=== PATIENT | female | born 1950 | race Caucasian/White ===

== ENCOUNTER 2017-05-12 23:47 | Emergency (ER) | payer MEDICARE ==
[2015-07-10 09:18] VITALS: BMI 22.9
[~2017-05-12 23:47] MED LIST: BAYER CHEWABLE81 MG PO; COREG 3.1253.125 MG PO; LIPITOR80 MG PO; PEPCID20 MG PO; PLAVIX75 MG PO; ZANAFLEX4 MG PO
[2017-05-13 02:34] LABS: HEMATOCRIT 28.4 % (36.0-48.0); HEMOGLOBIN 9.6 g/dL (12-16); MCH 29.6 pg (26.0-34.0); MCHC 33.8 g/dL (31.0-37.0); MCV 87.7 fL (80.0-100.0); MEAN PLATELET VOLUME 8.7 fL (7.4-10.4); PLATELET COUNT 243 10x3/uL (130-400); RBC 3.24 10x6/uL (4.00-5.40); RDW 12.5 % (11.5-14.5); WBC 4.6 10x3/uL (4.8-10.8)
[2017-05-13 02:49] LABS: ALBUMIN 2.8 g/dL (3.4-5.0); ANION GAP 10.6 mmol/L (8-16); BILIRUBIN - TOTAL 0.17 mg/dL (0.2-1.3); CALCIUM 8.3 mg/dL (8.5-10.1); CARBON DIOXIDE 26.3 mmol/L (21.0-32.0); CREATININE - SERUM 1.4 mg/dL (0.6-1.3); POTASSIUM - SERUM 4.9 mmol/L (3.5-5.1); PROTEIN - SERUM 6.3 g/dL (6.4-8.2)
[2017-05-13 03:00] LABS: BASOPHILS 2 % (0-2); EOSINOPHILS 3 % (0-7); LYMPHOCYTES 68 % (15-50); MICROCYTOSIS 1+; MONOCYTES 5 % (2-11); NEUTROPHILS 19 % (40-80); PLATELET ESTIMATE NORMAL
[2017-05-13 03:01] LABS: CRENATED CELLS OCC
== END 2017-05-13 04:25 | disposition home or self-care (01) ==
LOC: D.ER 23:47
PROVIDERS: Family Medicine
DX: M54.6 Pain in thoracic spine (principal); C50.919 Malignant neoplasm of unspecified site of unspecified female breast

== ENCOUNTER 2017-07-01 09:18 | Emergency (ER) | payer MEDICARE ==
[2015-07-10 09:18] VITALS: BMI 22.9
[2017-07-01 11:25] LABS: BASOPHILS 0.1 % (0-2); EOSINOPHILS 0 % (0-7); HEMOGLOBIN 8.6 g/dL (12-16); IMMATURE GRANULOCYTES 1.9 % (0-5); LYMPHOCYTES 18.7 % (15-50); MCH 29.8 pg (26.0-34.0); MCHC 34.4 g/dL (31.0-37.0); MCV 86.5 fL (80.0-100.0); MEAN PLATELET VOLUME 8.8 fL (7.4-10.4); MONOCYTES 6.5 % (2-11); NEUTROPHILS 72.8 % (40-80); RBC 2.89 10x6/uL (4.00-5.40); RDW 15.9 % (11.5-14.5); WBC 11.8 10x3/uL (4.8-10.8)
[2017-07-01 11:26] LABS: PLATELET COUNT 177 10x3/uL (130-400)
[2017-07-01 11:42] LABS: ANION GAP 15.7 mmol/L (8-16); CALCIUM 7.8 mg/dL (8.5-10.1); CARBON DIOXIDE 22.5 mmol/L (21.0-32.0); CREATININE - SERUM 1.7 mg/dL (0.6-1.3); POTASSIUM - SERUM 3.2 mmol/L (3.5-5.1)
[2017-07-01 11:43] LABS: BILIRUBIN - TOTAL 0.09 mg/dL (0.2-1.3)
[2017-07-01 12:39] LABS: APPEARANCE HAZY (CLEAR); BACTERIA MODERATE /hpf (NONE SEEN); BILIRUBIN NEGATIVE (NEGATIVE); COLOR YELLOW (YELLOW); EPITHELIAL CELLS 0-5 /hpf (0-5); GLUCOSE NEGATIVE (NEGATIVE); GRANULAR CAST OCC /lpf (NONE SEEN); HYALINE CAST RARE /lpf (NONE SEEN); KETONE NEGATIVE (NEGATIVE); MUCUS <1+ /lpf (NONE SEEN); NITRITE NEGATIVE (NEGATIVE); PROTEIN NEGATIVE (NEGATIVE); SPECIFIC GRAVITY 1.015 (1.005-1.020); UROBILINOGEN NORMAL (NORMAL); WHITE CELLS - URINE 0-5 /hpf (0-5)
== END 2017-07-01 13:44 | disposition home or self-care (01) ==
LOC: D.ER 09:18
PROVIDERS: Emergency Medicine
DX: R11.10 Vomiting, unspecified (principal); R19.7 Diarrhea, unspecified; Z85.3 Personal history of malignant neoplasm of breast

== ENCOUNTER 2017-10-06 10:58 | Outpatient (CLI) | payer MEDICARE ==
[~2017-10-06] VITALS: Ht 157.5 cm; Wt 50.9 kg
[2017-10-06 13:39] VITALS: BP 125/41; Ht 157.5 cm; Wt 50.9 kg
== END 2017-10-06 17:55 | disposition home or self-care (01) ==
LOC: D.OPS 10:58 → D.CATH 11:30 → D.OPS 17:55
DX: D64.9 Anemia, unspecified (principal)

== ENCOUNTER 2017-11-03 07:29 | Outpatient (CLI) | payer MEDICARE ==
[~2017-11-03] VITALS: Ht 157.5 cm; Wt 51.4 kg
--- NOTE | ~2017-11-03 | OP ---
PATIENT NAME: ARVIN STONE MEDICAL RECORD: [id number] :52 LOCATION:D.CAT ADMISSION DATE: SURGEON: LUANNE MAY MD DATE OF OPERATION: 11/03/2017 DATE OF SERVICE: 11/03/2017 PROCEDURES: 1. Aortofemoral runoff. 2. Abdominal aortography. INDICATION: Claudication and peripheral vascular disease. PROCEDURE IN DETAIL: After informed consent was obtained and after detailed explanation of risks, benefits as well as alternative therapies, the patient elected to proceed with angiogram and aortofemoral runoff. The right femoral area was prepped and draped in normal sterile fashion. The right femoral artery was cannulated via modified Seldinger technique with placement of 5-Irish sheath. All catheters exchanged through this sheath. FINDINGS: Abdominal aortography was performed. The catheter was pulled down for aortofemoral runoff. Abdominal aortography reveals no significant abdominal aortic disease, no renal artery stenosis. No dissection or aneurysm formation. RIGHT LEG: A. Iliac: The common internal and external iliacs have moderate irregularities, but no flow-limiting stenosis. B. Femoral system: The common and deep femoral are widely patent. Superficial femoral is totally occluded proximally. This total occlusion is a very long total occlusion. The distal superficial femoral artery does reconstitute from collaterals off the deep femoral system. The distal superficial femoral artery has a good lumen suitable for grafting. C. Popliteal and infrapopliteal vessels: The popliteal is widely patent. There is 3-vessel runoff to the foot, although mildly diffusely diseased and brisk. LEFT LEG: A. Iliac: The common internal and external iliacs have mild irregularities, but no flow-limiting stenosis. B. Femoral system: The common and deep femoral are widely patent. Superficial femoral is occluded from the ostium to the distal superficial femoral, reconstitutes from collaterals off the deep femoral system. The distal superficial femoral artery does have a good lumen suitable for grafting. C. Popliteal and infrapopliteal vessels: The popliteal is widely patent. Anterior tibial is totally occluded. There is 2-vessel runoff through the posterior tibial and peroneal. OVERALL IMPRESSION: Total occlusion of both SFAs bilaterally, not amenable to transcatheter revascularization, but amenable to surgical revascularization. TRANSINT:[id number] Voice Confirmation ID: [id number] DOCUMENT ID: [id number] OPERATIVE REPORT [id number] CHASE,ARVINLUANNE JORDAN MD CC: [id number] DICTATION DATE: 11/03/17 1014 SPARKER AND PATCHER: 11/03/17 1124 REG [place] [id number] [place] [id number]
--- NOTE | ~2017-11-03 | HEMODYNAMI ---
PATIENT:ARVIN STONE MEDICAL RECORD: [id number] : 52 LOCATION:D.CAT ADMISSION DATE: 11/03/17 Generatedon:11/03/201710:08 Patient name: ARVIN STONE Patient #: [id number] SSN: : 1950 Date of study: 11/03/2017 Page: Of Hemodynamic Procedure Report Patient Data Patient Demographics Procedure consent was obtained First Name: ARVIN Gender: Female Last Name: CHASE : 1950 Patient #: [id number] Age: 67 year(s) Race: Additional ID: [id number] Contact details Address: [address] [place] [address] State: [place] City: [facility] Zip code: [address] Past Medical History Allergies Allergen Reaction Date Comments Reported Other allergy 11/03/2017 MORPHINE, LATEX, ATORVASTATIN, ZETIA Admission Admission Data Admission Date: 11/03/2017 Admission Time: 7:29 Lab Results Lab Result Date: 11/03/2017 Lab Result Time: 0:00 Biochemistry Name Units Result Min Max BUN mg/dl 22 --(----)-* 7 18 Creatinine mg/dl 1.7 --(----)-* 0.6 1.3 CBC Name Units Result Min Max Hemoglobin g/dl 10.6 *-(----)-- 13.5 17.5 Procedure Procedure Types Cath Procedure Peripheral Cath Diagnostic Procedure Cath Peripheral Bzxwm-Ocghbfk-Oyi-Off Procedure Description Procedure Date Procedure Date: 11/03/2017 Procedure Start Time: 9:52 Procedure End Time: 10:07 Procedure Staff Name Function Taylor Conway RT Scrub Inés Valera RN Nurse Allen Logan MD Performing Physician Isidra Whitehead RT Monitor Procedure Data Cath Procedure Fluoroscopy Diagnostic fluoroscopy Total fluoroscopy Time: 1.3 time: 1.3 min min Diagnostic fluoroscopy Total fluoroscopy dose: 54 dose: 54 mGy mGy Contrast Material Contrast Material Type Amount (ml) Isovue 300 101 Entry Location Entry Primary Successful Side Size Upsize Upsize Entry Closure Succes sful Closure Location (Fr) 1 (Fr) 2 (Fr) Remarks Device Remarks Femoral Right 5 Fr Exoseal artery Estimated blood loss: 5 ml Diagnostic catheters Device Type Used For End Catheter Placement DIAGNOSTIC UF 5Fr Procedure catheter ([id number]) Procedure Complications No complications Procedure Medications Medication Administration Route Dosage Oxygen NC 2 l/min Lidocaine 2% added to field 20 Heparin Flush Bag added to field 2 bags (1000units/500ml NS) 0.9% NaCl I.V. 100 ml/hr Versed I.V. 1 mg Fentanyl I.V. 50 mcg Versed I.V. 1 mg Fentanyl I.V. 50 mcg Versed I.V. 0.5 mg Fentanyl I.V. 25 mcg Hemodynamics Rest HGB: 10.6 (g/dl) Heart Rate: 80 (bpm) Snapshots Pre Cath Intra NCS Post Cath Vital Signs Time Heart Resp SPO2 etCO2 NIBP Rhythm Pain Sedation Rate (ipm) (%) (mmHg) (mmHg) Status Level (bpm) 9:19:57 83 17 100 0 142/59(93) NSR 0 (11) 10(A) , No pain 9:24:42 74 15 99 0 130/48(75) NSR 0 (11) 10(A) , No pain 9:29:21 75 16 100 0 134/73(85) NSR 0 (11) 10(A) , No pain 9:34:03 74 15 100 35.4 129/47(83) NSR 0 (11) 10(A) , No pain 9:38:44 73 15 100 32.7 124/53(91) NSR 0 (11) 10(A) , No pain 9:43:25 72 15 100 37.7 112/42(83) NSR 0 (11) 10(A) , No pain 9:48:03 71 16 100 12.8 110/46(76) NSR 0 (11) 9(A) , No pain 9:52:42 71 14 100 37.7 97/42(69) NSR 0 (11) 9(A) , No pain 9:57:16 71 15 100 38.5 100/45(68) NSR 0 (11) 9(A) , No pain 10:01:53 77 16 100 40.7 102/41(71) NSR 0 (11) 9(A) , No pain 10:05:20 74 15 100 38.5 95/42(63) NSR 0 (11) 10(A) , No pain Medications Time Medication Route Dose Verified Delivered Reason Notes Effec tiveness by by 9:38:44 Oxygen NC 2 Allen Buffie used for l/min Doreen Valera RN procedure 9:38:52 Lidocaine 2% added 20ml Allen Allen for local to vial Doreen Logan MD anesthetic field 9:38:57 Heparin Flush added 2 Allen Allen used for Bag to bags Doreen Logan MD procedure (1000units/500ml field NS) 9:39:08 0.9% NaCl I.V. 100 Allen Buffie Per ml/hr Doreen Valera RN physician 9:44:01 Fentanyl I.V. 50 Allen Buffie for mcg Droeen Valera RN sedation 9:44:54 Versed I.V. 1 mg Allen Buffie for Doreen Valera RN sedation 9:53:24 Versed I.V. 1 mg Allen Buffie for Doreen Valera RN sedation 9:53:28 Fentanyl I.V. 50 Allen Tannerie for mcg Doreen Valera RN sedation 9:59:18 Versed I.V. 0.5 Allen Tannerie for mg Doreen Valera RN sedation 9:59:22 Fentanyl I.V. 25 Allen Buffie for mcg Doreen Valera RN sedation Procedure Log Time Note 9:04:20 Inés Valera RN sent for patient. Start room use. 9:04:21 Time tracking: Regular hours 9:04:24 Plan of Care:Hemodynamics will remain stable., Cardiac rhythm will remain stable., Comfort level will be maintained., Respiratory function will remain adequate., Patient/ family verbilizes understanding of procedure., Procedure tolerated without complication., Recovers from procedure without complications.. 9:12:41 Patient received from Pre/Post Procedure Room to CCL 1 Alert and oriented. Tansferred to table in Supine position. 9:12:42 Correct patient and procedure confirmed by team. 9:12:42 Warm blankets applied, and aramis hugger turned on for patient comfort. 9:12:43 Signed procedure consent form obtained from patient. 9:12:47 ECG and BP/O2 sat monitors applied to patient. 9:18:57 Vital chart was started 9:21:58 Baseline sample Acquired. 9:22:04 Rhythm: sinus rhythm 9:22:05 Full Disclosure recording started 9:22:09 H&P Date Dictated: 11/03/2017 Within 30 days and on chart., H&P Addendum completed by physician on day of procedure. (MUST COMPLETE FOR ALL OUTPATIENTS). 9:22:10 Pre-procedure instructions explained to patient. 9:22:10 Pre-op teaching completed and patient verbalized understanding. 9:22:13 Family in patients room. 9:22:14 Patient NPO since Midnight. 9:22:39 Patient allergic to Other allergyMORPHINE, LATEX, ATORVASTATIN, ZETIA 9:22:42 Is the patient allergic to Iodine/contrast media? No. 9:22:43 Is patient on blood thinner?Yes 9:22:46 ACC The patient was administered the following blood thiners within the last 24 hours: ACCPlavix 9:22:48 Patient diabetic? No. 9:22:51 Patient not . Patient is over age 55. 9:22:53 Previous problem with sedation/anesthesia? No ? 9:22:55 Snore? No 9:22:56 Sleep apnea? No 9:22:57 Deviated septum? No 9:22:58 Opens mouth fully? Yes 9:22:58 Sticks out tongue? Yes 9:23:00 Airway obstruction? No ? 9:23:03 Dentures? Yes OUT 9:23:08 Pre procedure: right dorsailis pedis pulse 2+ Normal; easily identifiable; not easily obliterated 9:23:11 Patient pain scale 0/10 ?. 9:23:16 IV patent on arrival in port with 0.9% NaCl at KVO. 9:23:21 Bilateral groins area was prepped with chlora-prep and draped in sterile fashion 9:26:50 Alarms reviewed by R. N. 9::51 Sharps counted by scrub and verified by R.N. 9:29:48 Lab Result : BUN 22 mg/dl 9::48 Lab Result : Creatinine 1.7 mg/dl 9::48 Lab Result : Hemoglobin 10.6 g/dl 9:29:52 Lab results completed and on chart. 9:33:18 Zero performed for pressure channel P1 9:33:28 Zero performed for pressure channel P1 9:33:41 Zero performed for pressure channel P1 9:35:32 Use device set Femoral Dx 9:35:38 ACIST Syringe (48494) opened to sterile field. 9:35:39 Bag Decanter (2002S) opened to sterile field. 9:35:44 ACIST Hand Control (88429) opened to sterile field. 9:35:45 ACIST Manifold (89243) opened to sterile field. 9:35:49 PERCUTANEOUS ENTRY 19GA needle opened to sterile field. 9:35:56 Medline Cath Pack ([id number]) opened to sterile field. 9:35:58 SHEATH 5FR Upatoi ([id number]) opened to sterile field. 9:35:59 DIAGNOSTIC WIRE .035 260cm J wire (359347) opened to sterile field. 9:38:44 Oxygen 2 l/min NC was administered by Inés Valera RN; used for procedure; 9:38:52 Lidocaine 2% 20ml vial added to field was administered by Allen Logan MD; for local anesthetic; 9:38:57 Heparin Flush Bag (1000units/500ml NS) 2 bags added to field was administered by Allen Logan MD; used for procedure; 9:39:08 0.9% NaCl 100 ml/hr I.V. was administered by Inés Valera RN; Per physician; 9:42:36 --------ALL STOP TIME OUT------ 9:42:36 Final Timeout: patient, procedure, and site verified with staff and physician. All members of the team are in agreement. 9:42:42 Bilateral groins site verified by team. 9:42:46 Physical assessment completed. ASA score P 2 - A patient with mild systemic disease as per Allne Logan MD. 9:42:52 Sedation plan: IV Moderate Sedation Medication:Versed, Fentanyl 9:44:01 Fentanyl 50 mcg I.V. was administered by Inés Valera RN; for sedation; 9:44:54 Versed 1 mg I.V. was administered by Inés Valera RN; for sedation; 9:52:16 Procedure started. 9:52:40 Local anesthetic to right femoral artery with Lidocaine 2% by Allen Logan MD.INITIAL ACCESS ONLY 9:53:24 Versed 1 mg I.V. was administered by Inés Valera RN; for sedation; 9:53:28 Fentanyl 50 mcg I.V. was administered by Inés Valera RN; for sedation; 9:54:20 A 5 Fr sheath was inserted into the Right Femoral artery 9:58:18 A DIAGNOSTIC UF 5Fr catheter ([id number]) was advanced over the wire and used for Procedure. 9:59:18 Versed 0.5 mg I.V. was administered by Inés Valera RN; for sedation; 9:59:22 Fentanyl 25 mcg I.V. was administered by Inés Valera RN; for sedation; 9:59:35 Left leg runoff performed. 10:00:47 Right leg runoff performed. 10:02:32 EXOSEAL 5Fr (EX500) opened to sterile field. 10:02:38 Catheter removed. 10:03:11 Sheath removed intact; hemostasis achieved with Exoseal to the Right Femoral artery. 10:03:17 Procedure ended.(Physican Out) 10:03:21 Fluoroscopy time 01.30 minutes. 10:03:23 Flurop Dose total: 54 10:03:23 Fluoroscopy dose: 54 mGy 10:03:41 Contrast amount:Isovue 300 101ml. 10:03:47 Sharps counted by scrub and verified by R.N. 10:03:50 Insertion/operative site no bleeding no hematoma. 10:04:24 Post-op/insertion site Right Femoral artery dressed using a 4 x 4 and Tegaderm. 10:04:28 Post right femoral artery:stable, soft, clean and dry 10:04:33 Post procedure: right dorsailis pedis pulse 2+ Normal; easily identifiable; not easily obliterated. 10:04:37 Post-procedure physical assessment completed. ASA score P 2 - A patient with mild systemic disease as per Allen Logan MD. 10:04:39 Post procedure rhythm: unchanged. 10:04:41 Estimated blood loss: 5 ml 10:04:43 Post procedure instruction explained to patient.Patient verbalizes understanding. 10:04:43 Patient needs reinforcement of post procedure teaching. 10:05:25 Procedure and supply charges have been captured, reviewed, submitted and are correct. 10:05:27 Procedure Complication : No complications 10:07:43 Vital chart was stopped 10:07:44 See physician's report for complete and final results. 10:07:47 Report given to Pre/Post Procedure Room. 10:07:50 Patient transfered to Pre/Post Procedure Room with Bed. 10:07:58 Procedure ended. 10:07:58 Full Disclosure recording stopped 10:08:02 End room use (Document Last) Device Usage Item Name Manufacture Quantity Catalog Hospital Part Current Minimal Lot# / Number Charge Number Stock Stock Serial# Code ACIST Acist 1 93063 418576 227424 255680 20 Syringe Medical (47979) Systems Inc Bag Decanter Microtek 1 2001S 187873 43866 547079 5 (2001S) Medical Inc. ACIST Hand Acist 1 45652 161711 321834 465289 5 Control Medical (54766) Systems Inc ACIST Acist 1 33268 629112 311677 943232 5 Manifold Medical (27765) Systems Inc PERCUTANEOUS Cook Medical 1 [id number] 098690 518521 5 ENTRY 19GA needle Medline Cath Cardinal 1 [id number] 673311 51043 137492 5 Pack Health ([id number]) SHEATH 5FR Terumo 1 ZTG174 738913 342706 313826 40 Upatoi (JJB351) DIAGNOSTIC St Camilo 1 719568 403181 335157 941522 30 WIRE .035 260cm J wire (042788) DIAGNOSTIC Cardinal 1 [id number] 848778 145594 077376 10 UF 5Fr Health catheter ([id number]) EXOSEAL 5Fr Cardinal 1 EX500 947014 500680 076795 10 (EX500) Health Signature Audit Edna Stage Time Signature Unsigned Intra-Procedure 11/03/2017 Isidra Whitehead 10:08:13 AM RT(R) Signatures Monitor : Isidra Whitehead Signature : RT Date : Time : [facility] [address] [place] [address]
--- NOTE | ~2017-11-03 | HP ---
PATIENT: ARVIN DOS SANTOS MEDICAL RECORD: [id number] ACCOUNT: [id number] LOCATION:ERIKA : 52 ADMISSION DATE: 11/03/17 HISTORY AND PHYSICAL EXAMINATION DIAGNOSES: 1. Peripheral vascular disease. 2. Claudication. 3. Hyperlipidemia. HISTORY OF PRESENT ILLNESS: Mrs. Dos Santos presents with increasing claudication symptomatology. She has past history of peripheral vascular disease, peripheral stenting. REVIEW OF SYSTEMS: The patient reports easy bruising but reports no swollen glands. The patient reports no fever, no night sweats, no significant weight gain, no significant weight loss. No significant exercise tolerance. The patient reports no dry eyes, no irritation, no vision change. Patient reports no difficulty hearing and no ear pain. Patient reports no frequent nose bleeds or nose and sinus problems. Patient reports on arm pain on exertion. No shortness of breath while lying down. No history of heart murmur. Patient reports no cough, no wheezing or coughing up blood. Patient reports no abdominal pain, no vomiting. Normal appetite. No diarrhea and not vomiting blood. No nausea and no constipation. Patient reports no incontinence. No difficulty urinating. No hematuria. No increased frequency. Patient reports no muscle aches. No weakness, no arthralgias, no back pain. No swelling of the extremities. Patient reports no abnormal mole, no jaundice, no rashes. Reports no loss of consciousness. No weakness and no numbness. No seizures, dizziness, or headaches. The patient reports no depression, no sleep disturbance, feeling safe in a relationship and no alcohol abuse. Patient reports on fatigue. Reports no runny nose or sinus pressure. No itching, no hives, and no frequent sneezing. PHYSICAL EXAMINATION: GENERAL APPEARANCE: Well-nourished, well-developed, appears stated age. Level of distress, comfortable. PSYCHIATRIC: Mental status, alert, normal affect. Orientation, oriented to time, place and person. EYES: Lids and conjunctiva, noninjected. No discharge, no pallor. ENT: Lips, teeth, gums, normal dentition. Oropharynx, no cyanosis, no pallor. NECK: Carotid arteries, bilateral normal upstroke, no bruits, no thrills. JUGULAR VEINS: No jugular venous pressure or distention. CERVICAL LYMPH NODES: Nontender, nonenlarged. THYROID: Not enlarged. Nontender. No nodules. LUNGS: Respiratory effort, unlabored. CHEST: Normal curvature. No thoracic deformity. No chest wall tenderness. Percussion, resonant. Auscultation, clear. No wheezes, no rales, no rhonchi. CARDIOVASCULAR: Precordial exam, nondisplaced. No heaves or pericardial thrills. Rate and rhythm, regular. Heart sounds, normal S1, normal S2. No S3, no gallop, no rub. Systolic murmur, not heard. Diastolic murmur, not heard. EXTREMITIES: No cyanosis, no edema. Peripheral pulses, full and equal in all extremities, except as noted. No bruits appreciated. ABDOMEN: Soft, nondistended. Normal aorta. No bruit. Nontender. No masses. Liver, nontender, no hepatomegaly. Spleen, nontender, no splenomegaly. MUSCULOSKELETAL: No joint tenderness. No joint swelling. No erythema. HISTORY AND PHYSICAL [id number] ARVIN DOS SANTOS NEUROLOGICAL: Normal gait, normal strength, normal tone. SKIN: Warm and dry. OVERALL IMPRESSION: Claudication symptomatology, most likely recurrent with significant peripheral vascular disease. We will proceed with aortofemoral runoff. Further care depends upon findings of the runoff. TRANSINT:[id number] Voice Confirmation ID: [id number] DOCUMENT ID: [id number] LUANNE MAY MD CC: [id number] DICTATION DATE: 11/03/17910 TIN DIPPER: 11/03/17924 [facility] [address] [place] [address]
[2017-11-03] MEDS ORDERED: NEURONTIN600 MG PO (08:05)
[2017-11-03 08:36] VITALS: BP 124/37; Ht 157.5 cm; Wt 51.4 kg
[2017-11-03 09:06] LABS: BASOPHILS 0.4 % (0-2); EOSINOPHILS 3.7 % (0-7); HEMATOCRIT 32.7 % (36.0-48.0); HEMOGLOBIN 10.6 g/dL (12-16); IMMATURE GRANULOCYTES 0.2 % (0-5); LYMPHOCYTES 20.1 % (15-50); MCH 30.6 pg (26.0-34.0); MCHC 32.4 g/dL (31.0-37.0); MCV 94.5 fL (80.0-100.0); MEAN PLATELET VOLUME 8.7 fL (7.4-10.4); MONOCYTES 9.3 % (2-11); NEUTROPHILS 66.3 % (40-80); RBC 3.46 10x6/uL (4.00-5.40); RDW 13.3 % (11.5-14.5); WBC 5.1 10x3/uL (4.8-10.8)
[2017-11-03 09:14] LABS: PLATELET COUNT 135 10x3/uL (130-400)
[2017-11-03 09:16] LABS: ANION GAP 13.3 mmol/L (8-16); CALCIUM 8.8 mg/dL (8.5-10.1); CREATININE - SERUM 1.7 mg/dL (0.6-1.3); POTASSIUM - SERUM 4.3 mmol/L (3.5-5.1)
== END 2017-11-03 12:28 | disposition home or self-care (01) ==
LOC: D.CATH 07:29
PROVIDERS: Internal Medicine Interventional Cardiology
DX: I70.213 Atherosclerosis of native arteries of extremities with intermittent claudication, bilateral legs (principal); Z01.812 Encounter for preprocedural laboratory examination

== ENCOUNTER 2020-01-05 11:12 | Inpatient (IN) | payer OTHER ==
[~2020-01-05] VITALS: Ht 157.5 cm; Wt 64.1 kg
--- NOTE | ~2020-01-05 | HEMODYNAMI ---
PATIENT:ARVIN STONE MEDICAL RECORD: [id number] : 52 LOCATION:D.MS Page2225 ADMISSION DATE: 01/05/20 Generatedon:01/06/202010:47 Patient name: ARVIN STONE Patient #: [id number] SSN: : 1950 Date of study: 01/06/2020 Page: Of Hemodynamic Procedure Report Patient Data Patient Demographics Procedure consent was obtained First Name: ARVIN Gender: Female Last Name: CHASE : 1950 Patient #: [id number] Age: 69 year(s) Race: Additional ID: [id number] Contact details Address: [address] [place] [address] [address]IVE State: [place] City: [facility] Zip code: [address] Past Medical History Allergies Allergen Reaction Date Comments Reported Other allergy 11/03/2017 MORPHINE, LATEX, ATORVASTATIN, ZETIA Other allergy 01/06/2020 morphine, atorvastatin, latex, zetia Admission Admission Data Admission Date: 01/05/2020 Admission Time: 13:07 Room #: D.2225 Procedure Procedure Types Cath Procedure Peripheral Cath Diagnostic Procedure Abd/Extremity Extremities Bilat Lower Extremity Procedure Description Procedure Date Procedure Date: 01/06/2020 Procedure Start Time: 10:00 Procedure Staff Name Function James Bhardwaj MD Performing Physician NESTOR MARSHALL RT Monitor Shreyas Storm RT Scrub Tammy Dawn RN Nurse Procedure Data Cath Procedure Fluoroscopy Diagnostic fluoroscopy Total fluoroscopy Time: 7.2 time: 7.2 min min Diagnostic fluoroscopy Total fluoroscopy dose: 95 dose: 95 mGy mGy Contrast Material Contrast Material Type Amount (ml) Isovue 300 65 Entry Location Entry Primary Successful Side Size Upsize Upsize Entry Closure Succes sful Closure Location (Fr) 1 (Fr) 2 (Fr) Remarks Device Remarks Femoral Right 5 Fr Sheath artery sutured in place Diagnostic catheters Device Type Used For End Catheter Placement Merit ULTRA BOLUS FLUSH 5Fr 65CM catheter ([id number]) Procedure Medications Medication Administration Route Dosage Heparin Flush Bag added to field 3 bags (1000units/500ml NS) Lidocaine 1% added to field 20 Versed I.V. 1 mg Fentanyl I.V. 50 mcg Benadryl I.V. 25 mg Heparin Bolus I.V. 5000 units Fentanyl I.V. 50 mcg Versed I.V. 1 mg Hemodynamics Rest Heart Rate: 67 (bpm) Snapshots Pre Cath Intra NCS Post Cath Vital Signs Time Heart Resp SPO2 etCO2 NIBP (mmHg) Rhythm Pain Sedation Rate (ipm) (%) (mmHg) Status Level (bpm) 9:50:08 60 16 100 41.5 125/47(101) NSR 0 (11) 10(A) , No pain 9:54:24 60 10 100 38.5 122/50(81) NSR 0 (11) 10(A) , No pain 9:58:38 65 11 100 24.1 140/50(76) NSR 0 (11) 10(A) , No pain 10:02:59 66 8 99 40 128/49(82) NSR 0 (11) 8(A) , No pain 10:07:17 65 8 99 38.5 114/43(78) NSR 0 (11) 8(A) , No pain 10:11:31 66 7 100 0 119/44(72) NSR 0 (11) 8(A) , No pain 10:15:45 66 7 100 42.3 116/43(74) NSR 0 (11) 8(A) , No pain 10:19:57 66 7 100 41.5 130/49(92) NSR 0 (11) 8(A) , No pain 10:24:13 77 8 100 43 120/52(78) NSR 0 (11) 8(A) , No pain 10:29:12 72 8 98 40.8 Measuring NSR 0 (11) 8(A) , No pain 10:29:22 71 9 98 46.1 135/59(100) NSR 0 (11) 8(A) , No pain 10:33:42 67 8 98 0 126/45(73) NSR 0 (11) 8(A) , No pain 10:37:56 67 7 99 44.5 146/51(89) NSR 0 (11) 8(A) , No pain 10:42:16 66 8 100 46.1 141/57(91) NSR 0 (11) 8(A) , No pain 10:46:36 67 8 100 45.3 147/52(101) NSR 0 (11) 8(A) , No pain Medications Time Medication Route Dose Verified Delivered Reason Notes Effe ctiveness by by 10:00:17 Heparin Flush added 3 James Ramirez used for Bag to bags Bhardwaj Bhardwaj procedure (1000units/500ml field MD LAM NS) 10:00:28 Lidocaine 1% added 20ml James Ramirez for local to vial Bhardwaj Bhardwaj anesthetic field MD LAM 10:00:40 Versed I.V. 1 mg James Munoz for Bhardwaj López RN sedation 10:00:52 Fentanyl I.V. 50 James Munoz for mcg Bhardwaj López RN sedation 10:01:03 Benadryl I.V. 25 mg James Munoz Per Bhardwaj López RN physician 10:24:57 Heparin Bolus I.V. 5000 James Ramirez units Bhardwaj Bhardwajrl LAM MD 10:27:36 Fentanyl I.V. 50 James Munoz for mcg Bhardwaj López RN sedation 10:27:44 Versed I.V. 1 mg James Tammy for Bhardwaj López RN sedation Procedure Log Time Note 9:20:37 Use device set IR Diagnostic 9:20:39 ACIST Syringe (83784) opened to sterile field. 9:20:39 ACIST Hand Control (26030) opened to sterile field. 9:20:40 ACIST Manifold (89713) opened to sterile field. 9:20:40 Bag Decanter (2001S) opened to sterile field. 9:20:41 Sterile Angiographic Pack opened to sterile field. 9:20:41 Tegaderm 4 x 4 (1626W) opened to sterile field. 9:21:14 PERCUTANEOUS ENTRY 19GA needle opened to sterile field. 9:21:14 SHEATH 5FR [place] (BIA850) opened to sterile field. 9:21:14 TUBING Contrast Injection High Pressure (MZV887O) opened to sterile field. 9:21:15 DOC .035 wire (A18014) opened to sterile field. 9:21:17 - 9:27:22 Shreyas Emeterio RT (R) (CV) sent for patient. Start room use. 9:27:23 Time tracking: Regular hours (M-F 7:00 - 5:00) 9:27:29 Plan of Care:Hemodynamics will remain stable., Cardiac rhythm will remain stable., Comfort level will be maintained., Respiratory function will remain adequate., Patient/ family verbilizes understanding of procedure., Procedure tolerated without complication., Recovers from procedure without complications.. 9:27:37 Patient received from Med/Surg to IR Alert and oriented. Tansferred to table in Supine position. 9:27:38 Signed procedure consent form obtained from patient. 9:27:39 Warm blankets applied, and aramis hugger turned on for patient comfort. 9:27:40 Correct patient and procedure confirmed by team. 9:27:40 ECG and BP/O2 sat monitors applied to patient. 9:27:48 H&P Date Dictated: 01/06/2020 Within 30 days and on chart.. 9:27:50 Pre-procedure instructions explained to patient. 9:27:51 Pre-op teaching completed and patient verbalized understanding. 9:27:55 Patient NPO since Midnight. 9:28:27 Patient allergic to Other allergymorphine, atorvastatin, latex, zetia 9:28:30 Is the patient allergic to Iodine/contrast media? No. 9:28:50 Patient diabetic? No. 9:28:53 Is patient on blood thinner?No 9:28:57 - 9:28:59 ----Pre-sedation anethsthesia assessment.---- 9:29:08 Previous problem with sedation/anesthesia? No ? 9:29:10 Snore? No 9:29:12 Sleep apnea? No 9:29:14 Deviated septum? No 9:29:15 Opens mouth fully? Yes 9:29:20 Sticks out tongue? Yes 9:29:23 Airway obstruction? No ? 9:29:28 Dentures? No ? 9:29:30 - 9:30:21 IV patent on arrival in left forearm with 0.9% NaCl at [facility]. ::28 Right groin area was prepped with chlora-prep and draped in sterile fashion :30:29 Alarms reviewed by Jennifer Harris :30:30 Sharps counted by scrub and verified by Prerna 9:30:31 - 9:43:03 A ConnectSoft ULTRA BOLUS FLUSH 5Fr 65CM catheter ([id number]) was advanced over the wire. 9:48:48 Vital chart was started 9:48:49 Baseline sample Acquired. 9:48:52 Full Disclosure recording started 9:48:55 - 9:56:43 Physician arrived 9:56:43 --------ALL STOP TIME OUT------ 9:56:44 Final Timeout: patient, procedure, and site verified with staff and physician. All members of the team are in agreement. 9:56:45 Right groin site verified by team. 9:56:49 Fire Safety Assessment: A--An alcohol-based skin anteseptic being used preoperatively., C--Open oxygen or nitrous oxide is being used. 9:57:00 3b) 30-44 Moderately reduced kidney function. 10:00:03 Procedure started. 10:00:17 Heparin Flush Bag (1000units/500ml NS) 3 bags added to field was administered by James Bhardwaj MD; used for procedure; Verbal order read back and verified. 10:00:28 Lidocaine 1% 20ml vial added to field was administered by James Bhardwaj MD; for local anesthetic; Verbal order read back and verified. 10:00:32 Local anesthetic to right femoral artery with Lidocaine 1% by James Bhardwaj MD.INITIAL ACCESS ONLY 10:00:40 Versed 1 mg I.V. was administered by Tammy Dawn RN; for sedation; Verbal order read back and verified. 10:00:52 Fentanyl 50 mcg I.V. was administered by Tammy Dawn RN; for sedation ; Verbal order read back and verified. 10:01:03 Benadryl 25 mg I.V. was administered by Tammy Dawn RN; Per physician ; Verbal order read back and verified. 10:04:29 GLIDE CATHETER 5FR ANGLED 100cm (CG508) opened to sterile field. 10:04:29 GLIDE WIRE .038 180cm ANGLED (MI9324) opened to sterile field. 10:04:35 TORQUE DEVICE PLASTIC .038 ( TD01) opened to sterile field. 10:05:18 A 5 Fr sheath was inserted into the Right Femoral artery 10:16:00 RETANA 260 wire (O23218) opened to sterile field. 10:16:44 INFUSION CATHETER 50cm Anselmo (6656453) opened to sterile field . 10:18:01 AMPLATZ Super stiff Straight 260cm wire ([id number]) opened to sterile field. 10:20:35 SUTURE ETHILON 2-0 BLK MONO FS opened to sterile field. 10:22:08 INFUSION CATHETER 30cm Jasmynara (1693332) opened to sterile field . 10:24:57 Heparin Bolus 5000 units I.V. was administered by James Bhardwaj MD; ; Verbal order read back and verified. 10:25:26 Hemostasis achieved with Sheath sutured in place to the Right Femoral artery. 10:26:37 Fluoroscopy time 07.20 minutes. 10::42 Fluoroscopy dose: 95 mGy 10::42 Flurop Dose total: 95 10:27:36 Fentanyl 50 mcg I.V. was administered by Tammy Dawn RN; for sedation ; Verbal order read back and verified. 10:27:44 Versed 1 mg I.V. was administered by Tammy Dawn RN; for sedation; Verbal order read back and verified. 10:32:54 Contrast amount:Isovue 300 65ml. 10:33:07 Post procedure instruction explained to patient.Patient verbalizes understanding. 10:33:10 Procedure and supply charges have been captured, reviewed, submitted an d are correct. 10:47:23 Vital chart was stopped 10:47:27 Patient transfered to CVICU with Bed. Device Usage Item Name Manufacture Quantity Catalog Number Hospital Part Current De nimwy Lot# / Charge Number Stock Stock Serial# Code ACIST Syringe Acist 1 61630 371132 646857 622863 20 (76872) Medical Systems Inc ACIST Hand Acist 1 34375 967944 607796 659554 5 Control Medical (61484) Systems Inc ACIST Manifold Acist 1 76081 416084 832063 739672 5 (92384) Medical Systems Inc Bag Decanter Microtek 1 2001S 916427 80535 293340 5 (2001S) Medical Inc. Sterile Cardinal 1 [id number] 889439 296804 5 Angiographic Health Pack Tegaderm 4 x 4 3M 1 1626W 866357 442429 077306 5 (1626W) PERCUTANEOUS Cook Medical 1 S76083 423219 477622 5 [id number] ENTRY 19GA needle SHEATH 5FR Terumo 1 JAF228 622554 547037 914855 5 [place] (HLS860) TUBING Merit 1 [id number] 399756 015917 781894 5 [id number] Contrast Medical Injection High Pressure ([id number]) DOC .035 wire Cook Medical 1 W69658 257868 939337 5 (C25085) Merit ULTRA Merit 1 [id number] 644327 509770 5 BOLUS FLUSH Medical 5Fr 65CM catheter ([id number]) GLIDE CATHETER Terumo 1 CG508 796830 88777 990782 4 5FR ANGLED 100cm (CG508) GLIDE WIRE Terumo 1 IQ1989 035706 532384 5 .038 180cm ANGLED (IO5375) TORQUE DEVICE [place] 1 TD01 342173 135033 697887 5 PLASTIC .038 ( Scientific TD01) RETANA 260 wire Cook Medical 1 V99640 000900 54644 828802 5 (J70093) INFUSION Medtronic 1 33951-74 054030 352356 5 CATHETER 50cm Otisgg-Zeke (4385710) AMPLATZ Super [place] 1 [id number] 151168 29449 380106 5 stiff Straight Scientific 260cm wire ([id number]) SUTURE ETHILON Ethicon 1 664H 093768 797837 5 2-0 BLK MONO FS INFUSION Medtronic 1 39396-57 806343 090576 5 CATHETER 30cm Otisgg-Zeke (1557776) Signature Audit [place] Stage Time Signature Unsigned Intra-Procedure 01/06/2020 NESTOR MARSHALL RT 10:47:45 AM (R) [facility] [address] [place] [address]
--- NOTE | ~2020-01-05 | HEMODYNAMI ---
PATIENT:ARVIN STONE MEDICAL RECORD: [id number] : 52 LOCATION:[facility] D.2305 ADMISSION DATE: 01/05/20 Generatedon:01/07/202011:22 Patient name: ARVIN STONE Patient #: [id number] SSN: : 1950 Date of study: 01/07/2020 Page: Of Hemodynamic Procedure Report Patient Data Patient Demographics Procedure consent was obtained First Name: ARVIN Gender: Female Last Name: CHASE : 1950 Patient #: [id number] Age: 69 year(s) Race: Additional ID: [id number] Contact details Address: [address] [place] [address] DRIVE State: [place] City: [facility] Zip code: [address] Past Medical History Allergies Allergen Reaction Date Comments Reported Other allergy 11/03/2017 MORPHINE, LATEX, ATORVASTATIN, ZETIA Other allergy 01/06/2020 morphine, atorvastatin, latex, zetia Admission Admission Data Admission Date: 01/05/2020 Admission Time: 13:07 Room #: D2305 Procedure Procedure Types Cath Procedure Peripheral Cath Diagnostic Procedure Abd/Extremity Follow Up Arteriogram Procedure Description Procedure Date Procedure Date: 01/07/2020 Procedure Start Time: 9:35 Procedure Staff Name Function Kendall Dobbins MD Performing Physician Shreyas Storm RT Monitor Lary Russo RN Nurse NESTOR MARSHALL RT Scrub Procedure Data Cath Procedure Fluoroscopy Diagnostic fluoroscopy Total fluoroscopy Time: time: 17.2 min 17.2 min Diagnostic fluoroscopy Total fluoroscopy dose: 278 dose: 278 mGy mGy Procedure Medications Medication Administration Route Dosage Heparin Flush Bag added to field 2 bags (1000units/500ml NS) Lidocaine 1% added to field 20 Benadryl I.V. 25 mg Heparin Bolus I.V. 2000 units Versed I.V. 0.5 mg Fentanyl I.V. 25 mcg Fentanyl I.V. 25 mcg Versed I.V. 0.5 mg Heparin Bolus I.V. 1000 units Fentanyl I.V. 25 mcg Nitroglycerin IC/IA I.A. 200 mcg Nitroglycerin IC/IA I.A. 250 mcg Versed I.V. 0.5 mg Hemodynamics Rest Heart Rate: 86 (bpm) Snapshots Pre Cath Intra NCS Post Cath Vital Signs Time Heart Resp SPO2 etCO2 NIBP (mmHg) Rhythm Pain Sedation Rate (ipm) (%) (mmHg) Status Level (bpm) 9:20:56 86 6 97 45.1 151/60(98) NSR 0 (11) 10(A) , No pain 9:25:20 82 9 97 43.5 148/58(99) NSR 0 (11) 10(A) , No pain 9:29:44 80 6 98 36 145/54(96) NSR 0 (11) 10(A) , No pain 9:34:06 84 6 97 45 145/55(91) NSR 0 (11) 10(A) , No pain 9:38:28 81 10 96 37.5 138/52(87) NSR 0 (11) 8(A) , No pain 9:42:49 82 7 98 45 139/52(86) NSR 0 (11) 8(A) , No pain 9:47:07 83 8 99 45.8 143/57(91) NSR 0 (11) 8(A) , No pain 9:51:27 86 13 98 51 147/59(91) NSR 0 (11) 8(A) , No pain 9:55:49 84 15 100 45 157/57(95) NSR 0 (11) 8(A) , No pain 10:00:12 86 14 90 44.3 165/60(101) NSR 0 (11) 8(A) , No pain 10:04:39 86 8 97 46.5 154/58(91) NSR 0 (11) 8(A) , No pain 10:09:04 85 10 98 46.5 144/60(105) NSR 0 (11) 8(A) , No pain 10:13:24 86 10 43.5 143/63(96) NSR 0 (11) 8(A) , No pain 10:17:44 86 9 86 46.5 157/64(98) NSR 0 (11) 8(A) , No pain 10:22:06 86 20 95 48.1 146/61(93) NSR 0 (11) 8(A) , No pain 10:26:26 87 6 95 45.8 148/65(102) NSR 0 (11) 8(A) , No pain 10:30:46 88 6 92 44.3 154/62(110) NSR 0 (11) 8(A) , No pain 10:35:09 89 8 48.8 157/62(103) NSR 0 (11) 8(A) , No pain 10:39:31 89 12 100 42.8 150/61(95) NSR 0 (11) 8(A) , No pain 10:43:53 87 7 88 44.3 144/61(106) NSR 0 (11) 8(A) , No pain 10:48:13 87 10 44.3 152/62(91) NSR 0 (11) 8(A) , No pain 10:52:37 86 13 42.1 156/55(112) NSR 0 (11) 8(A) , No pain 10:57:02 90 12 86 44.3 151/59(88) NSR 0 (11) 8(A) , No pain 11:01:24 91 11 72 45 160/59(94) NSR 0 (11) 8(A) , No pain 11:05:46 92 10 41.3 161/64(107) NSR 0 (11) 8(A) , No pain 11:10:08 89 10 91 43.5 156/56(99) NSR 0 (11) 8(A) , No pain 11:14:34 86 10 44.3 154/57(100) NSR 0 (11) 8(A) , No pain 11:18:34 0 No Cuff NSR 0 (11) 8(A) , No pain Medications Time Medication Route Dose Verified Delivered Reason Notes E ffectiveness by by 9:28:55 Heparin Flush added 2 bags Kendall Argueta used for Bag to Mu Dobbins procedure (1000units/500ml field MD LAM NS) 9:29:12 Lidocaine 1% added 20ml Kendall Argueta used for to vial Mu Dobbins procedure field MD LAM 9:29:28 Benadryl I.V. 25 mg Kendall Barth used for Mu Karan boothe MD 9:35:03 Fentanyl I.V. 25 mcg Kendall Leivai for sedation Mu Russo RN, MD 9:35:51 Versed I.V. 0.5 mg Kendall Barth for sedation Mu Russo RN, MD 9:40:37 Heparin Bolus I.V. 2000 Kendall Lary used for units Mu boothe MD 9:56:34 Fentanyl I.V. 25 mcg Kendall Barth for sedation Mu Russo RN, MD 9:56:44 Versed I.V. 0.5 mg Kendall Leivai for sedation Mu Russo RN, MD 10:10:48 Heparin Bolus I.V. 1000 Kendall Lary used for units Mu boothe MD 10:17:58 Fentanyl I.V. 25 mcg Kendall Leivai for sedation Mu Russo RN, MD 10:18:08 Nitroglycerin I.A. 200mcg Kendall Argueta for IC/IA Mu birmingham MD, MD 10:33:36 Nitroglycerin I.A. 250mcg Kendall Argueta for IC/IA Mu birmingham MD, MD 10:46:39 Versed I.V. 0.5 mg Kendall Argueta for sedation Mu Dobbins MD, MD Procedure Log Time Note 9:07:18 Shreyas Storm RT (R) (CV) sent for patient. Start room use. 9:07:29 Time tracking: Regular hours (M-F 7:00 - 5:00) 9:07:35 Plan of Care:Hemodynamics will remain stable., Cardiac rhythm will remain stable., Comfort level will be maintained., Respiratory function will remain adequate., Patient/ family verbilizes understanding of procedure., Procedure tolerated without complication., Recovers from procedure without complications.. 9:07:40 Patient received from ICU to IR Alert and oriented. Tansferred to table in Supine position. 9:07:43 Signed procedure consent form obtained from patient. 9:07:45 Correct patient and procedure confirmed by team. 9:07:47 Full Disclosure recording started 9:07:48 - 9:07:50 H&P Date Dictated: 01/07/2020 Within 30 days and on chart.. 9:07:51 Pre-procedure instructions explained to patient. 9:07:52 Pre-op teaching completed and patient verbalized understanding. 9:07:56 Use device set IR Diagnostic 9:07:58 Bag Decanter (2002S) opened to sterile field. 9:07:58 Sterile Angiographic Pack opened to sterile field. 9:08:00 Tegaderm 4 x 4 (1626W) opened to sterile field. 9:08:05 Family unavailable. 9:08:07 Patient NPO since Midnight. 9:08:11 Is the patient allergic to Iodine/contrast media? No. 9:08:13 Is patient on blood thinner?Yes 9:08:21 ACC The patient was administered the following blood thiners within the last 24 hours: ACCHeparin 9:08:58 Patient diabetic? No. 9:08:59 - 9:09:00 - 9:09:00 ----Pre-sedation anethsthesia assessment.---- 9:09:12 Snore? No 9:09:15 Sleep apnea? No 9:09:22 Opens mouth fully? Yes 9:09:24 Sticks out tongue? Yes 9:09:29 Deviated septum? No 9:09:36 Dentures? No ? 9:09:37 - 9:09:40 Pre procedure: right dorsailis pedis pulse Doppler 9::43 Pre procedure: left dorsailis pedis pulse Doppler 9::46 Pre procedure: right posterior tibial pulse Doppler 9:09:49 Pre procedure: left posterior tibial pulse Doppler 9:10:16 IV patent on arrival in left forearm with 0.9% NaCl at [facility]. 9:10:21 Sharps counted by scrub and verified by R.N. 9::22 Alarms reviewed by R. N. 9::25 Right groin area was prepped with betadine and draped in sterile fashio n 9::43 ECG and BP/O2 sat monitors applied to patient. 9::44 Vital chart was started 9:19:45 Baseline sample Acquired. 9:21:42 3b) 30-44 Moderately reduced kidney function. 9:22:37 Maximum allowable contrast dose (3.7 X eGFR X 0.75)88.8 ml. 9:28:55 Heparin Flush Bag (1000units/500ml NS) 2 bags added to field was administered by Kendall Dobbins MD; used for procedure; Verbal order read back and verified. 9:29:12 Lidocaine 1% 20ml vial added to field was administered by Kendall pradhan MD; used for procedure; Verbal order read back and verified. 9:29:28 Benadryl 25 mg I.V. was administered by Lary Russo RN; used for procedure; Verbal order read back and verified. 9:33:23 Physician arrived 9:33:24 --------ALL STOP TIME OUT------ 9:33:25 Final Timeout: patient, procedure, and site verified with staff and physician. All members of the team are in agreement. 9:33:27 Right groin site verified by team. 9:33:31 Fire Safety Assessment: A--An alcohol-based skin anteseptic being used preoperatively., C--Open oxygen or nitrous oxide is being used. 9:33:37 Sedation plan: IV Moderate Sedation Medication:Versed, Fentanyl 9:35:03 Fentanyl 25 mcg I.V. was administered by Lary Russo RN; for sedation; Verbal order read back and verified. 9:35:20 Procedure started. 9:35:24 Local anesthetic to right femoral artery with Lidocaine 1% by Kendall Dobbins MD.INITIAL ACCESS ONLY 9:35:51 Versed 0.5 mg I.V. was administered by Lary Russo RN; for sedation; Verbal order read back and verified. 9:38:09 BENTSON 260 wire ([id number]) opened to sterile field. 9:38:10 CHOICE PT Extra Support J 300cm guide wire ([id number]) opened to steril e field. 9:38:10 RETANA 260 wire ([id number]) opened to sterile field. 9:38:11 SHEATH 6FR Destination (RSR01) opened to sterile field. 9:38:12 INFLATOR BasixTOUCH (BA5004) opened to sterile field. 9:40:37 Heparin Bolus 2000 units I.V. was administered by Lary Russo RN; used for procedure; Verbal order read back and verified. 9:40:38 CXI SUPPORT .035 135 CM STR catheter ([id number]) opened to sterile field. 9:49:44 ROADRUNNER .035 260 glide wire (V19762) opened to sterile field. 9:53:21 COPILOT Valve Control ([id number]) opened to sterile field. 9:56:34 Fentanyl 25 mcg I.V. was administered by Lary Russo RN; for sedation; Verbal order read back and verified. 9:56:44 Versed 0.5 mg I.V. was administered by Lary Russo RN; for sedation; Verbal order read back and verified. 10:02:13 Inflate balloon Inflation number: 1 A NANOCROSS ELITE 2.5MM-2 MM X 210 X 150 ([id number]) was prepped and advanced across the Undefined1 , then inflated to 8 TANIA for 0:19 (min:sec) . 10:10:48 Heparin Bolus 1000 units I.V. was administered by Lary Russo RN; used for procedure; Verbal order read back and verified. 10:17:58 Fentanyl 25 mcg I.V. was administered by Lary Russo RN; for sedation; Verbal order read back and verified. 10:18:08 Nitroglycerin IC/IA 200mcg I.A. was administered by Kendall Dobbins MD; for vasodilation; Verbal order read back and verified. 10:22:35 Inflate balloon Inflation number: 2 A NANOCROSS ELITE 2-1.5 mm X 210 X 150 ([id number]) was prepped and advanced across the Undefined1 , then inflated to 8 TANIA for 0:04 (min:sec) . 10:33:36 Nitroglycerin IC/IA 250mcg I.A. was administered by Kendall Dobbins MD; for vasodilation; Verbal order read back and verified. 10:45:04 SHEATH 6FR [place] ([id number]) opened to sterile field. 10:46:39 Versed 0.5 mg I.V. was administered by Kendall Dobbins MD; for sedation; Verbal order read back and verified. 10:55:39 Inflate balloon Inflation number: 3 A CHOCOLATE 5.0 x 40 x 120 balloon ([id number]) was prepped and advanced across the Undefined1 , then inflated to 9 TANIA for 3:14 (min:sec) . 10:58:28 MYNX ANIMAL HUSBANDRY TECHNICIAN 6FR/7FR (MG0310) opened to sterile field. 11:05:22 Procedure ended.(Physican Out) 11:05:44 Fluoroscopy time 17.20 minutes. 11:05:51 Fluoroscopy dose: 278 mGy 11:05:51 Flurop Dose total: 278 11:05:54 Dose Area Product 105 mGy/cm. 11:07:24 Insertion/operative site no bleeding no hematoma. 11:07:28 Post-op/insertion site Right Femoral artery dressed using a 4 x 4 and Tegaderm. 11:07:32 Post right femoral artery:stable 11:07:34 Post Procedure Pulses reassessed and unchanged 11:07:38 Post procedure instruction explained to patient.Patient verbalizes understanding. 11:07:38 Procedure and supply charges have been captured, reviewed, submitted an d are correct. 11:22:05 Report given to ICU. 11:22:08 Patient transfered to ICU with Bed. 11:22:38 Vital chart was stopped Intervention Summary Intervention Notes Time ActionType Lesion and Equipment Used Action# Pressure Duration Attributes 10:02:13 Inflate Undefined1 NANOCROSS ELITE 1 8 00:19 balloon 2.5MM-2 MM X 210 X 150 ([id number]) 10:22:35 Inflate Undefined1 NANOCROSS ELITE 2 8 00:04 balloon 2.5MM-2 MM X 210 X 150 ([id number]) 10:55:39 Inflate Undefined1 CHOCOLATE 5.0 x 3 9 03:14 balloon 40 x 120 balloon ([id number]) Device Usage Item Name Manufacture Quantity Catalog Number [facility] Minimal Lot# / Charge Number Stock Stock Serial# Code Bag Decanter Microtek 1 [id number] 16568 [id number] 5 () Medical Inc. Sterile Cardinal 1 [id number] 638016 109466 5 Angiographic Pack Health Tegaderm 4 x 4 3M 1 1626W 708756 545885 758323 5 (1626W) BENTSON 260 wire [employer] 1 [id number] 460898 276693 323419 5 ([id number]) CHOICE PT Extra [place] 1 [id number] 283122 464033 129269 5 [id number] Support J 300cm Scientific guide wire ([id number]) RETANA 260 wire [employer] 1 [id number] 188134 32549 629928 5 (L18035) SHEATH 6FR Terumo 1 RSR01 454594 44443 826042 5 Destination (RSR01) INFLATOR Merit 1 QE6894 314791 708199 329291 5 [facility] CXI SUPPORT .035 [employer] 1 T96229 707259 113514 532357 5 [id number] 135 CM STR catheter ([id number]) ROADRUNNER .035 [employer] 1 F76605 535141 731489 385959 5 [id number] 260 glide wire (L79612) COPILOT Valve Dickson 1 7931930 512818 477316 672857 5 Control ([id number]) Vascular NANOCROSS ELITE Medtronic 2 [id number] 176047 002392 1 2.5MM-2 MM X 210 X 150 ([id number]) SHEATH 6FR Terumo 1 WMJ192 713360 156019 415798 40 [place] (PBX015) CHOCOLATE 5.0 x Medtronic 1 [id number] 059582 057402 5 40 x 120 balloon O ([id number]) TW MYNX ANIMAL HUSBANDRY TECHNICIAN 6FR/7FR Access 1 GU6838 893283 122957 5 [id number] ([id number]) Closure Signature Audit [place] Stage Time Signature Unsigned Intra-Procedure 01/07/2020 Shreyas 11:22:34 AM Emeterio RT (R) (CV) [facility] [address] [place] [address]
[~2020-01-05 11:12] MED LIST changes: +NEURONTIN600 MG PO
[2020-01-05] MEDS ORDERED: LYRICA75 MG PO (13:26)
[2020-01-05] MEDS ORDERED: ULTRAM50 MG PO (13:28)
[2020-01-05] MEDS ORDERED: ZANAFLEX4 MG PO (13:28)
[2020-01-05 13:42] VITALS: BP 148/45
[2020-01-05 14:08] LABS: BASOPHILS 0.5 % (0-2); EOSINOPHILS 1.9 % (0-7); HEMATOCRIT 36.3 % (36.0-48.0); HEMOGLOBIN 11.4 g/dL (12-16); IMMATURE GRANULOCYTES 0.2 % (0-5); LYMPHOCYTES 25.6 % (15-50); MCH 28.4 pg (26.0-34.0); MCHC 31.4 g/dL (31.0-37.0); MCV 90.3 fL (80.0-100.0); MEAN PLATELET VOLUME 8.8 fL (7.4-10.4); MONOCYTES 6.4 % (2-11); NEUTROPHILS 65.4 % (40-80); RBC 4.02 10x6/uL (4.00-5.40); RDW 13.5 % (11.5-14.5); WBC 5.9 10x3/uL (4.8-10.8)
[2020-01-05 14:09] LABS: ANION GAP 13.4 mmol/L (8-16); CALCIUM 8.9 mg/dL (8.5-10.1); CARBON DIOXIDE 27.5 mmol/L (21.0-32.0); CREATININE - SERUM 1.8 mg/dL (0.6-1.3); POTASSIUM - SERUM 3.9 mmol/L (3.5-5.1)
[2020-01-05 14:10] LABS: PLATELET COUNT 250 10x3/uL (130-400)
[2020-01-05 14:22] VITALS: BP 178/75; BMI 23.6
--- NOTE | 2020-01-05 14:30 | NUR ---
ASSESSMENT PER FLOW SHEET. ORIENTATION TO ROOM. IV SITED TO RIGHT FOREARM X1 STICK ASEPTIC TECH,22G.
[2020-01-05 14:39] LABS: APTT 27.7 SECONDS (22.8-39.4); INR 0.86 (0.85-1.17); PROTIME 11.7 SECONDS (11.6-15.0)
[2020-01-05 17:16] VITALS: BP 87/56
[2020-01-05 20:00] VITALS: BP 127/47
--- NOTE | 2020-01-05 22:48 | HP ---
PATIENT: ARVIN STONE MEDICAL RECORD: [id number] ACCOUNT: [id number] LOCATION:D.MS Page2225 : 52 ADMISSION DATE: 01/05/20 PCP: EDSON MASON MD HISTORY AND PHYSICAL EXAMINATION DATE OF ADMISSION: 01/05/2020 CHIEF COMPLAINT: Pain and swelling in left leg. HISTORY OF PRESENT ILLNESS: This is a 69-year-old female who had a left femoral bypass surgery done in [place] in 2018. She has done pretty well with it until about the last week when she started having some pain at the distal end of the scar above the knee medially and started having swelling. There was some redness noted, but no heat from this area. The patient is having some claudication, is having some rest pain and some shooting pains down her leg and into her toes. Because of her pain and swelling, there was also a thought of DVT. The patient had a deep vein thrombosis of both legs during many years ago and then also had a DVT in the left upper extremity after getting port placement. She was sent from my office to [facility] for outpatient venous Doppler ultrasound of the left leg and it was positive for nonocclusive deep vein thrombosis in the left popliteal vein. She also underwent a left arterial Doppler scan of the left leg at same time and there was no flow demonstrated in the left SFA graft, but there was flow in the left lower extremity distal to that graft. There was also no flow detected in the left dorsalis pedis artery. She is now directly admitted into the hospital, will be started on heparin. This case has been discussed with interventional radiology and Dr. Alcantara is consulted as well. 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 She has had a left CVA back in 2013. PAST SURGICAL HISTORY: She had a left lumpectomy, hysterectomy, left femoral bypass surgery in [place] in 2018. She had a carotid stent placed in 2013, she had port placement. ALLERGIES: MORPHINE, LATEX AND MACROLIDES. HOME MEDICATIONS: Include tizanidine 4 mg at bedtime, Lyrica 75 mg twice a day, tramadol 50 mg twice a day. She is on no blood thinners. SOCIAL HISTORY: She is . She has been working at [employer], but I believe her job has been furloughed at this time. HABITS: Long time smoker, who has quit (states she smoked couple recently). Denies alcohol or drug use. FAMILY HISTORY: She really does not know much about her father, does not know his cause of . The patient's mother at age 42. REVIEW OF SYSTEMS: GENERAL: No major weight changes. HEENT: No particular sinus or allergy problems. HISTORY AND PHYSICAL [id number] ARVIN STONE RESPIRATORY: No history of COPD or asthma. CARDIAC: She has had some blockage treated medically. She has peripheral artery disease with a left femoral bypass and carotid occlusive disease with stent placed in the left carotid artery. GASTROINTESTINAL: No significant heartburn, diarrhea or constipation. GENITOURINARY: History of bladder cancer followed by urology at [place]. MUSCULOSKELETAL: Has fibromyalgia. NEUROLOGIC: No migraines or seizures. PSYCHIATRIC: No significant depression or melancholia. PHYSICAL EXAMINATION: VITAL SIGNS: Temperature 97.9, pulse 66, respirations 18, blood pressure 178/75, O2 sat 96%. GENERAL: She is awake and alert. She does not appear in acute distress. HEENT: Grossly within normal limits. NECK: Supple. HEART: Regular rate and rhythm without murmur. LUNGS: Clear. ABDOMEN: Soft, flat, nontender. EXTREMITIES: She has a well-healed scar down the medial aspect of the left thigh, at the distal, just above the knee, there is some mild swelling and some redness. There is no warmth here. The distal end of her surgery from her femoral bypass surgery scars well healed. This is where her tenderness really starts. Homans' sign is negative, but has generalized tenderness in the leg, below the knee. I do not feel a dorsalis pedis pulse, but the leg is not cold. LABORATORY AND DIAGNOSTIC DATA: CBC with a white count of 5900, hemoglobin 11.4. INR 0.86. Basic metabolic panel is all okay except BUN a little elevated at 30 and creatinine a little elevated at 1.8. Again, left venous Doppler ultrasound is positive for nonocclusive deep vein thrombosis in the left popliteal vein and the left leg arterial Doppler ultrasound shows no flow demonstrated in the left superficial femoral artery graft, but there is flow in the left lower extremity distal to this. No flow in the left dorsalis pedis artery. ASSESSMENT: Left lower extremity deep venous thrombosis and left lower extremity femoral artery graft occlusion. PLAN: I have talked with interventional radiology. We will get a CTA of the abdomen with runoff to get a better idea of what is going on. The patient asks that we consult Dr. Alcantara for evaluation of her left femoral artery bypass graft. Studies for hypercoagulable state are ordered. She is on a heparin drip. Other tests or procedures as warranted. TRANSINT:[id number] Voice Confirmation ID: [id number] DOCUMENT ID: [id number] HISTORY AND PHYSICAL [id number] ARVIN STONE WILLIAM MD at 2248 CC: [id number] DICTATION DATE: 01/05/20 1641 SENIOR STRUCTURAL ENGINEER: 01/05/20 1729 ADM IN [facility] [address] [place] [address]
[2020-01-06] VITALS (18 sets, daily range): BP systolic 112–199; BP diastolic 40–74; Ht 157.5 cm; Wt 64.1 kg
--- NOTE | 2020-01-06 06:38 | NUR ---
ASSESSED AT THE BEGINNING OF THE SHIFT. PT IS ALERT AND ORIENTED, ABLE TO VERBALIZE NEEDS. SHE HAS A HEPARIN DRIP GOING AND DURING THE EVENING IT WAS DC'D DUE TO BEING TOO HIGH EVEN WITH A REDRAW. SHE WAS NPO AT MIDNIGHT AND HAS HAD A HIBICLENS BATH AND SKIN PREP. HER PERMITS ARE SIGNED AND SHE IS READY. DURING THE NIGHT SHE COMPLAINED THAT HER ULTRAM WAS NOT HELPING HER LEG PAIN SO MD WAS CALLED AND NEW ORDER OBTAINED. SHE STATED THE NORCO HELPED A LITTLE BUT NOT THAT MUCH. SHE WILL TALK WITH THE MD TODAY. SHE CONTINUES TO GET UP AD CLAY AND GO TO THE BATHROOM.
--- NOTE | 2020-01-06 06:48 | NUR ---
CALLED EXTENTION 2383 AND 4080 TO REPORT THAT PT HAS HEPARIN BUT THERE WAS NO ANSWER.
--- NOTE | 2020-01-06 08:00 | NUR ---
SHE IS GOING TO THE BATHROOM WHEN I CAME IN TO ASSESS HER. SHE IS ASKING FOR PAIN MED, GIVEN PRN WITH A SIP OF WATER, NPO SINCE MIDNIGHT. WAITING TO HAVE A PROCEDURE DONE.
[2020-01-06 08:22] LABS: BASOPHILS 0.7 % (0-2); HEMATOCRIT 33.7 % (36.0-48.0); HEMOGLOBIN 10.4 g/dL (12-16); IMMATURE GRANULOCYTES 0.2 % (0-5); LYMPHOCYTES 33.7 % (15-50); MCH 28.4 pg (26.0-34.0); MCHC 30.9 g/dL (31.0-37.0); MCV 92.1 fL (80.0-100.0); MEAN PLATELET VOLUME 8.6 fL (7.4-10.4); MONOCYTES 9.4 % (2-11); RBC 3.66 10x6/uL (4.00-5.40); RDW 13.6 % (11.5-14.5)
[2020-01-06 08:34] LABS: PLATELET COUNT 178 10x3/uL (130-400)
[2020-01-06 08:44] LABS: ANION GAP 15.4 mmol/L (8-16); CALCIUM 8.2 mg/dL (8.5-10.1); CARBON DIOXIDE 22.9 mmol/L (21.0-32.0); CREATININE - SERUM 1.7 mg/dL (0.6-1.3); POTASSIUM - SERUM 4.3 mmol/L (3.5-5.1)
[2020-01-06 08:54] LABS: INR 0.9 (0.85-1.17); PROTIME 12.2 SECONDS (11.6-15.0)
[2020-01-06 08:56] LABS: APTT 36.7 SECONDS (22.8-39.4)
--- NOTE | 2020-01-06 09:14 | NUR ---
GONE TO IR.
--- NOTE | 2020-01-06 11:00 | NUR ---
UPON RECEIVING PT, IR NURSE EXPLAINED THAT "PT HAS NO PULSE IN LEFT FOOT AND FOOT IS BLUE, BUT PULSE SHOULD COME BACK IN A FEW HOURS OR SO". SAW PT AND EXAMINED PULSES. TOLD ME TO CALL IR AND TELL THEM SHE HAS NO PULSE IN THE LEFT FOOT AND SHE IS IN EXCRUTIATING PAIN. CALLED IR MULTIPLE TIMES. NO ANSWER. WILL CONT TO CALL IR. WILL CONT TO MONITOR.
--- NOTE | 2020-01-06 11:00 | NUR ---
RECEIVED PT TO ROOM CV04 VIA BED. PT C/O OF IMMENSE AMOUNTS OF LEFT FOOT PAIN, LEFT FOOT IS BLUE/PA. WILL CONT TO MONITOR.
--- NOTE | 2020-01-06 11:58 | NUR ---
SPOKE WITH ERIN FROM . HAS ALREADY SPOKE WITH . NO NEW ORDERS RECEIVED. ASSESSMENT COMPLETE PER FLOWSHEET, SEE FLOWSHEET FOR INFORMATION. WILL CONT TO MONITOR.
--- NOTE | 2020-01-06 13:00 | NUR ---
PT STATES "MY FOOT FEELS BETTER" PT FOOT IS NOW WHITE. WILL CONT TO MONITOR.
[2020-01-06 13:17] LABS: PROTIME 13.1 SECONDS (11.6-15.0)
[2020-01-06 13:23] LABS: APTT 117.9 SECONDS (22.8-39.4)
--- NOTE | 2020-01-06 13:56 | NUR ---
ON THE PHONE WITH PEDRITO FROM IR. UPDATE GIVEN, WILL CONT TO MONITOR.
[2020-01-06 14:39] LABS: BASOPHILS 0.5 % (0-2); EOSINOPHILS 3.4 % (0-7); HEMATOCRIT 38.6 % (36.0-48.0); HEMOGLOBIN 12.1 g/dL (12-16); IMMATURE GRANULOCYTES 0.2 % (0-5); LYMPHOCYTES 29.5 % (15-50); MCH 28.9 pg (26.0-34.0); MCHC 31.3 g/dL (31.0-37.0); MCV 92.1 fL (80.0-100.0); MEAN PLATELET VOLUME 9.1 fL (7.4-10.4); MONOCYTES 8.2 % (2-11); NEUTROPHILS 58.2 % (40-80); PLATELET COUNT 161 10x3/uL (130-400); RBC 4.19 10x6/uL (4.00-5.40); RDW 13.7 % (11.5-14.5); WBC 4.4 10x3/uL (4.8-10.8)
--- NOTE | 2020-01-06 15:00 | NUR ---
REASSESSMENT COMPLETED PER FLOWSHEET, SEE FLOWSHEET FOR INFORMATION. VSS. ASSISSTED PT ON BEDPAN, PT C/O OF "I NEED TO PEE NOW". PT ON BEDPAN FOR 10 MINUTES, UNABLE TO URINATE. WILL CONT TO MONITOR.
[2020-01-06 16:41] LABS: BASOPHILS 0.5 % (0-2); EOSINOPHILS 2.1 % (0-7); HEMATOCRIT 33.7 % (36.0-48.0); HEMOGLOBIN 10.5 g/dL (12-16); IMMATURE GRANULOCYTES 0.2 % (0-5); LYMPHOCYTES 20.2 % (15-50); MCH 28.5 pg (26.0-34.0); MCHC 31.2 g/dL (31.0-37.0); MCV 91.3 fL (80.0-100.0); MEAN PLATELET VOLUME 8.4 fL (7.4-10.4); PLATELET COUNT 146 10x3/uL (130-400); RBC 3.69 10x6/uL (4.00-5.40); RDW 13.7 % (11.5-14.5)
[2020-01-06 16:49] LABS: INR 1.03 (0.85-1.17); PROTIME 13.4 SECONDS (11.6-15.0)
[2020-01-06 16:51] LABS: APTT 112.3 SECONDS (22.8-39.4)
[2020-01-06 17:08] LABS: WBC 5.6 10x3/uL (4.8-10.8)
--- NOTE | 2020-01-06 17:34 | NUR ---
MOVED PT TO ROOM 2305 IN ICU. WILL CONT TO MONITOR.
--- NOTE | 2020-01-06 19:06 | NUR ---
BLADDER SCANNED PT AFTER BEING UNABLE TO URINATE, 762ML OF URINE NOTED. RECINOS CATHETER INSERTED. 800ML OF URINE NOTED. WILL CONT TO MONITOR.
--- NOTE | 2020-01-06 23:00 | NUR ---
1900 REPORT RECEIVED. RECEIVED PATIENT IN BED. ASSESSMENT COMPLETED PER FLOW SHEET WITH NO ACUTE DISTRESS OBSERVED. MONITORS CONNECTED TO PATIENT WITH ALARMS SET. VSS. CALL LIGHT IN REACH. LEFT FOOT PALE AND COOL TO TOUCH. LEFT DORSALIS PEDIS PULSE WEAK/PALP. 2100 LEFT FOOT WARMER TO TOUCH/ COLOR IMPROVING. PAIN CONTROLLED PER STONE POLISHER HAND. VSS. CALL LIGHT IN REACH 2300 REASSESSMENT COMPLETED PER FLOW SHEET WITH NO ACUTE DISTRESS OBSERVED. VSS. CALL LIGHT WITH IN REACH. LEFT FOOT WARM TO TOUCH WITH RED/PUPLE DISCOLORATION.
[2020-01-06 23:46] LABS: BASOPHILS 0.3 % (0-2); EOSINOPHILS 0.1 % (0-7); HEMATOCRIT 33.6 % (36.0-48.0); HEMOGLOBIN 10.2 g/dL (12-16); IMMATURE GRANULOCYTES 0.2 % (0-5); LYMPHOCYTES 8.3 % (15-50); MCH 28.9 pg (26.0-34.0); MCHC 30.4 g/dL (31.0-37.0); MEAN PLATELET VOLUME 8.5 fL (7.4-10.4); MONOCYTES 4.8 % (2-11); NEUTROPHILS 86.3 % (40-80); PLATELET COUNT 121 10x3/uL (130-400); RBC 3.53 10x6/uL (4.00-5.40); RDW 13.9 % (11.5-14.5)
[2020-01-06 23:53] LABS: MCV 95.2 fL (80.0-100.0); WBC 8.7 10x3/uL (4.8-10.8)
[2020-01-06 23:56] LABS: PROTIME 15.8 SECONDS (11.6-15.0)
[2020-01-07] VITALS (20 sets, daily range): BP systolic 112–144; BP diastolic 43–80
[2020-01-07 00:12] LABS: APTT 85.3 SECONDS (22.8-39.4); INR 1.27 (0.85-1.17)
--- NOTE | 2020-01-07 01:00 | NUR ---
RESTING WITH EYES CLOSED, EASILY ROUSED AND ALERT. VSS. LEFT FOOT WARM AND PINK/PULSE PALPABLE.
[2020-01-07 04:34] LABS: BASOPHILS 0.3 % (0-2); EOSINOPHILS 0.3 % (0-7); HEMATOCRIT 31.8 % (36.0-48.0); HEMOGLOBIN 9.9 g/dL (12-16); IMMATURE GRANULOCYTES 0.1 % (0-5); LYMPHOCYTES 20.1 % (15-50); MCH 28.6 pg (26.0-34.0); MCHC 31.1 g/dL (31.0-37.0); MEAN PLATELET VOLUME 8.3 fL (7.4-10.4); NEUTROPHILS 72.2 % (40-80); PLATELET COUNT 111 10x3/uL (130-400); RBC 3.46 10x6/uL (4.00-5.40); RDW 13.7 % (11.5-14.5); WBC 7.3 10x3/uL (4.8-10.8)
[2020-01-07 04:35] LABS: MCV 91.9 fL (80.0-100.0)
[2020-01-07 04:41] LABS: INR 1.38 (0.85-1.17); PROTIME 16.8 SECONDS (11.6-15.0)
[2020-01-07 04:43] LABS: APTT 111.3 SECONDS (22.8-39.4)
--- NOTE | 2020-01-07 06:40 | NUR ---
SPOKE WITH DR. IRELAND , INFORMED OF LOW FIBRINOGEN. NEW ORDERS RECEIVED.
--- NOTE | 2020-01-07 07:00 | NUR ---
BEDSIDE REPORT RECEIVED. SHIFT ASSESSMENT COMPLETE PER FLOWSHEET, SEE FLOWSHEET FOR INFORMATION. PT C/O OF MOUTH BEING EXTREMELY DRY, SWABBED MOUTH OUT WITH MINT MOUTH SWABS. PT STATED "THAT FEELS MUCH BETTER." VSS. WILL CONT TO MONITOR.
[2020-01-07 08:45] LABS: ANION GAP 13.2 mmol/L (8-16); CALCIUM 8.1 mg/dL (8.5-10.1); CARBON DIOXIDE 23.5 mmol/L (21.0-32.0); CREATININE - SERUM 1.7 mg/dL (0.6-1.3); POTASSIUM - SERUM 4.7 mmol/L (3.5-5.1)
--- NOTE | 2020-01-07 09:00 | NUR ---
YADIEL RAYA AND ERIN TOOK PT TO IR.
--- NOTE | 2020-01-07 11:30 | NUR ---
RECEIVED PT FROM IR ACCOMPANIED BY IR STAFF VIA BED TO ROOM 2305. REASSESSMENT COMPLETED PER FLOWSHEET, SEE FLOWSHEET FOR INFORMATION. VSS. WILL CONT TO MONITOR.
[2020-01-07 12:08] LABS: PROTEIN S - FREE 72 % (57-157); PROTEIN S - FUNCTIONAL 81 % (63-140); PROTEIN S - TOTAL 114 % (60-150)
--- NOTE | 2020-01-07 13:00 | NUR ---
PT RESTING IN BED WITH EYES CLOSED. NO S/S OF BLEEDING FROM RIGHT GROIN. WILL CONT TO MONITOR.
--- NOTE | 2020-01-07 15:00 | NUR ---
REASSESSMENT COMPLETED PER FLOWSHEET, SEE FLOWSHEET FOR INFORMATION. VSS. NO ACUTE NEEDS OR DISTRESS NOTED AT THIS TIME. WILL CONT TO MONITOR.
[2020-01-07 16:07] LABS: PROTEIN C - ANTIGEN 149 % (60-150); PROTEIN C - FUNCTIONAL 183 % (73-180)
--- NOTE | 2020-01-07 17:00 | NUR ---
DINNER TRAY GIVEN, PT ATE VERY LITTLE OF TRAY, LESS THAN 15%. NO ACUTE NEEDS OR DISTRESS NOTED AT THIS TIME. VSS. WILL CONT TO MONITOR.
--- NOTE | 2020-01-07 23:11 | NUR ---
DR HAYES CALLED ABOUT PT, UPDATE PROVIDED, NO NEW ORDERS AT THIS TIME.
[2020-01-08] VITALS (21 sets, daily range): BP systolic 111–141; BP diastolic 36–79
[2020-01-08 05:31] LABS: INR 1.12 (0.85-1.17); PROTIME 14.4 SECONDS (11.6-15.0)
[2020-01-08 05:39] LABS: ANION GAP 12.2 mmol/L (8-16); CALCIUM 7.6 mg/dL (8.5-10.1); CARBON DIOXIDE 25.5 mmol/L (21.0-32.0); CREATININE - SERUM 1.6 mg/dL (0.6-1.3)
[2020-01-08 05:43] LABS: POTASSIUM - SERUM 3.7 mmol/L (3.5-5.1)
[2020-01-08 05:47] LABS: APTT 185.5 SECONDS (22.8-39.4)
--- NOTE | 2020-01-08 05:51 | NUR ---
PTT RESULTS NOTED ON AM LAB, HEPARIN GTT HELD X 60 MINS AND WILL DECREASE RATE BY 300 UNITS/HR FROM 600 TO 300 UNITS/HR PER PROTOCOL. REDRAW OF PTT ORDERED FOR 1150.
--- NOTE | 2020-01-08 13:36 | NUR ---
0700 REPORT RECIEVED AND CARE ASSUMED OF PATIENT.. SEE FLOW SHEET FOR ASSSESMENT FINDINGS.. PT IS ORALLY INTUBATED AND WITHOUT RESPONSE ON VENT WITHOUT SEDATION.. BP IS SUPPORTED BY LEVOPHED AND VASOPRESSIN DRIPS// 08 CONTINUES ON VENT REMAINS UNRESPONSIVE .. 0900 DR LEE IN TO SEE PT.. UPDATE GIVEN AND ORDERS RECIEVED.. 1045 LAB DRAWN FROM CVL FOR TYPE AND CROSS... PROXIMAL PORT WILL NOT FLUSH NOR PULL.. DRAWN FROM MEDIAL PORT.. 1130 DR COLEMAN IN TO SEE PATIENT.. UPDATE TO PBRB INFUSION TO 2 UNITS. 1200 PT CALLED AND UPDATE GIVEN.. 1230 FIRST UNIT PRBC HUNG FOR INFUSION 1300 DR DINH IN TO SEE PT.. UPDATE GIVEN AND DR ZIMMER PRESSORS WEANED OFF.. OK TO WWEAN IF SYS BP IS 90 CONTINUE TO TITRATE PRESSORS...
--- NOTE | 2020-01-08 13:58 | NUR ---
0700 REPORT RECEIVED AND CARE ASSUMED OF PATIENT.. SEE FLOW SHEET FOR ASSESMENT FINDINGS..PEDAL PULSES ARE WITH DOPPLER... HEPARIN DRIP INFUSING AT 300 UNITS /HR 0800 BREAKFAST SERVWED AND PT IS FEEDING SELF.. 0900 DR BLANCHARD IN TO SEE PT.. UPDATE GIVEN AND DR HAYES CALLED FOR DR BLANCHARD TO TALK TO.. 0920DDAamir HAYES RETURNED CALL AND SPOKE WITH DR BLANCHARD RE HEPARIN DRIP 1015 DR HAYES IN TO SEE PATIENT.. 1100 DR KAPLAN IN TO SEE PATIENT.. DR ORTA VERY ADAMENT THAT ORTHO BE CONSULTED IMMIDIATLY FOR POSSIBLE COMPARTMENT SYNDROME.. 1125 DR COHEN IN TO SEE PATIENT .. IMMIDIATE V.O. RECIEVED FOR PATIENT TO BE PREPPED FOR OR FOR FACIOTOMY.. OF LEFT LOWER EXTREMITIE.. 1145 PERMITS SIGNED AND CHG BATH GIVEN.. PT SISTER FIORELLA CALLED AND DR COHEN SPOKE WITH HER FOR UPDATE... 1210 ANESTHESIA HERE FOR PATIENT.. 1225 PT TRANSPORTED TO OR VIA BED DR COHEN IN ATTENDANCE AT BEDSIDE.. 1400 RR CALLED WITH PATIENT REPORT..
--- NOTE | 2020-01-08 18:00 | NUR ---
1430 PT RETURNED FROM THE RR VIA BED .. WOUND VAC IN PLACE ON LEFT LOWER EXTREMITIE.. THERE IS AN JJ WRAP ON THE LEG FROM THE KNEE DOWN TOES ARE WARM AND PINK AND PULSE IS WITH DOPPLER.. 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 1515 PT IS SLEEPING AT THIS TIME.. 1645 AWAKE C/O PAIN NORCO GIVEN AND DINNER SERVED.. FEEDING SELF.. . 1730 PT IS WITHOUT C/O AT THIS TIME.. SHE IS TALKING ON PHONE TO FAMILY JT
--- NOTE | 2020-01-08 19:00 | NUR ---
RECIVED REPORT AT BEDSIDE. PT IS RESTING WITH EYES CLOSED BUT ARISES EAISLY WHEN CALLED NAME. SHE IS A&OX4. NOTED TELEVISION PRODUCER DILAUDID. PT VOICES PAIN "7/10" NUEMRIC SCALE ON LEFT LOWER LEG. SHE JUST RECIEVED NORCO PILL FOR BREAKTHROUGH PAIN. MARCO A RN VOICED WHEN SHE IS RESTING SHE REST WELL BUT WHEN SHE WAKES UP IS WHEN THE PAIN IS WORSE. PT VOICES NO NEEDS AT THIS TIME. VSS. PERFORMED FULL ASSESSMENT AND WILL DOC IN FLOW SHEET. BED IS LOW,SIDE RAILSX2,CALL LIGTH WITHIN REACH.
--- NOTE | 2020-01-08 20:55 | NUR ---
PT IS RESTING IN BED WITH EYES CLOSED. AWAKES EASILY. ADMINSITEREED TIMED MEDS ORDERED. PROVIDED WITH FRESH PILLOW BEHIND HEAD AND NEW CUP OF WATER. NO NEEDS OR COMPLAINTS VOICED OTHER THAN PAIN. PT PUSHED SHANICEUAUDI POWER MARKETER BUTTON WHILE I WAS IN HER ROOM. HELPED REPOSITION FOR COMFORT. BED WAS LEFT LOW,SIDE RAISLX2,CALL LIGHT WITHIN REACH. WILL CONTINUE TO MONITOR
--- NOTE | 2020-01-08 22:34 | NUR ---
PT IS RESTING IN BED WITHE EYES CLOSED. VSS. WILL HANG ANCEF PER ORDER. NOT GOING TO WAKE PT UP BUT LET HER REST. BED IS LOW,SIDE RAILSX2,CALL LIGHT WITHIN REACH.WILL CONTINUE TO MONITOR
--- NOTE | 2020-01-08 23:07 | NUR ---
PERFORMED RE-ASSESSMENT AT THIS TIME AND WILL DOC ON FLOWSHEET. PT VOICES NO NEEDS. VSS. BED IS LOW,SIDE RAISLX2,CALL LIGHT WITHIN REACH. WILL CONITNUE TO MONITOR
[2020-01-09] VITALS (24 sets, daily range): BP systolic 92–124; BP diastolic 33–72
--- NOTE | 2020-01-09 01:02 | NUR ---
PT IS RESTING IN BED WITH EYES CLOSED. VSS. BED IS LOW,SIDE RAILSX2,CALL LGITH WITHIN REACH.WILL CONINTUE TO MONITOR
[2020-01-09 01:56] LABS: ANION GAP 11.9 mmol/L (8-16); CALCIUM 7.2 mg/dL (8.5-10.1); CARBON DIOXIDE 26.1 mmol/L (21.0-32.0); CREATININE - SERUM 1.6 mg/dL (0.6-1.3)
[2020-01-09 01:58] LABS: INR 1.27 (0.85-1.17); PROTIME 15.8 SECONDS (11.6-15.0)
--- NOTE | 2020-01-09 01:59 | NUR ---
APPT LAB CAME BACK AT 77.3. PER HEPRAIN PROTOCOL THERE IS NO CHANGE TO DOSE AT THIS TIME AND TO RE-CHECK WITH NEXT AM LAB
[2020-01-09 02:00] LABS: APTT 77.3 SECONDS (22.8-39.4)
--- NOTE | 2020-01-09 04:28 | NUR ---
PT IS RESTING IN BED WITH EYES CLOSED. VSS. BED IS LOW,SIDE RIALSX2,CALL LIGHT WITHIN REACH.WILL CONTINUE TO MONITOR
--- NOTE | 2020-01-09 07:00 | NUR ---
REPORT RECEIVED. ASSESSMENT COMPLETE PER FLOW SHEET. VSS. PT RESTING COMFORTABLY WILL CONTIUE TO MONITOR
--- NOTE | 2020-01-09 08:03 | OP ---
PATIENT NAME: ARVIN DOS SANTOS MEDICAL RECORD: [id number] :52 LOCATION:.[facility] D.2305 ADMISSION DATE:01/05/20 SURGEON: LONI COHEN DO DATE OF OPERATION: 01/08/2020 PROCEDURE PERFORMED: Left lower extremity compartment releases. INDICATIONS: Ms. Dos Santos is a 69-year-old female who had a revascularization of procedure done to her left lower extremity 2 days ago, it was very successful and got good blood flow down to her lower leg on the left. She started having increasing pain in the lower leg with passive stretch. I was asked to see the patient today. I came in and she did have clinical signs of compartment syndrome. She is very tender to palpation on all the compartments of the lower leg as well as extreme pain with passive stretch of the toes and the ankle with dorsiflexion. Upon noting that and comparing the size difference of the right from the left, mostly the clinical exam finding of the pain with passive stretch, I informed her that we need to take her to the OR immediately and do compartment releases that her leg was at risk for losing blood flow to the compartments and that they would eventually and she still may have a risk of that and need for amputation and damage to nerves and vessels in the area and loss of use of that limb. She is aware of those risks and signed a consent. SURGEON: Loni Cohen DO DESCRIPTION OF PROCEDURE: The patient was taken to the operative suite, laid in a supine position, given general anesthetic and a rapid intubation sequence was done and she had eaten 4 hours prior. Once the left lower extremity was prepped and draped in a sterile fashion. Timeout was performed, everyone was in agreement with the correct side, site, patient and procedure. An incision was drawn out on the medial and lateral aspects of the lower leg. The medial side was addressed first. Careful dissection was made down with a 10-blade scalpel to the posterior superficial compartment. This was released and then the posterior deep compartment released right off the posterior aspect of the tibia. Since the compartments were released, the muscle was herniated out into the wound indicating that they were quite tight and the Bovie was used to test them and they were viable. I did contract with using a Bovie on and there were pink and had good blood flow. We then addressed the anterior and lateral compartments. An incision was made on the lateral side just a centimeter and a half anterior to the fibula. Once that was done, released the anterior compartment and the lateral compartment completely. The superficial peroneal nerve was encountered and guarded as it was not cut. Care was taken to do that as well as the sural nerve on the medial side, similar to the medial side and lateral side of the anterior and lateral compartments. The muscles herniated quickly through the incised fascia indicating that she was indeed experiencing compartment syndrome, but the muscles were viable and pink. Once that was done, the sites were then closed using vessel loops on both sides in a crisscross or sandal fashion, stapling them across and then wound VACs were placed on the wounds medial and laterally. Once that was completed, she was dressed with Kerlix and Rickie wrap. She was then awakened and taken to recovery in stable condition. ESTIMATED BLOOD LOSS: Approximately 50 mL. COMPLICATIONS: None. OPERATIVE REPORT [id number] ARVIN DOS SANTOS TRANSINT:[id number] Voice Confirmation ID: [id number] DOCUMENT ID: [id number] LONI COHEN DO at 0803 CC: [id number] DICTATION DATE: 01/08/20 1335 DIRECTOR CLINICAL OPERATIONS: 01/09/20 0739 ADM IN [facility] [address] [place] [address]
--- NOTE | 2020-01-09 08:52 | NUR ---
Nutrition follow-up: Pt POD 1 of fasciotomy with wound VAC placement Diet: AHA with po intake ~75% of meals Labs reviewed Wt: 141# Scheduled for surgery 01/09 RDN following.
--- NOTE | 2020-01-09 11:15 | NUR ---
REASSESSMENT COMPLETE PER FLOW SHEET. VSS. PT RESTING COMFORTABLY WILL CONTINUE TO MONITOR
--- NOTE | 2020-01-09 15:15 | NUR ---
REASSESSMENT COMPLETE PER FLOW SHEET. VSS. NO NEW CHANGES WILL CONTINUE TO MONITOR
--- NOTE | 2020-01-09 19:00 | NUR ---
SHIFT ASSESSMENT COMPLETED, PT CARE ASSUMED, MONITORS ON AND WORKING, VITALS STABLE, PT AWAKE AND ALERT, WOUND VAC WORKING PROPERLY. CALL LIGHT WITHIN REACH, SEE FLOW SHEET FOR FURTHER DETAILS, WILL CONTINUE TO OBSERVE.
[2020-01-10] VITALS (9 sets, daily range): BP systolic 88–120; BP diastolic 36–43
--- NOTE | 2020-01-10 01:00 | NUR ---
PT LYING IN BED RESTING, MONITORS ON AND WORKING, VITALS STABLE, CALL LIGHT WITHIN REACH, WILL CONTINUE TO OBSERVE.
--- NOTE | 2020-01-10 03:00 | NUR ---
NO CHANGES, MONITORS ON AND WORKING, VITALS STABLE, CALL LIGHT WITHIN REACH, SEE FLOW SHEET FOR FURTHER DETAILS WILL CONTINUE TO OBSERVE.
[2020-01-10 04:22] LABS: INR 1.38 (0.85-1.17); PROTIME 16.9 SECONDS (11.6-15.0)
[2020-01-10 04:23] LABS: APTT 79.4 SECONDS (22.8-39.4)
[2020-01-10 04:26] LABS: ANION GAP 10.8 mmol/L (8-16); CALCIUM 7.6 mg/dL (8.5-10.1); CARBON DIOXIDE 24.9 mmol/L (21.0-32.0); CREATININE - SERUM 1.8 mg/dL (0.6-1.3); POTASSIUM - SERUM 3.7 mmol/L (3.5-5.1)
--- NOTE | 2020-01-10 07:00 | NUR ---
PT REPORT RECEIVED FROM SEC ACCOUNTANT NURSE. NO ACUTE SIGNS OF DISTRESS NOTED. PT RESTING IN BED. SHIFT ASSESSMENT COMPLETED. WILL CONTINUE TO MONITOR
--- NOTE | 2020-01-10 11:52 | NUR ---
PAGED DR MASON. SPOKE WITH HIS NURSE MIR. UPDATED HER ON PT. ASKED IF DR MASON IS OKAY WITH TRANSFER AFTER SURGERY. DR COHEN IS OKAY WITH TRANSFER. NURSE STATED THAT PT IS OKAY TO TRANSFER AND SHE WILL LET DR MASON KNOW.
--- NOTE | 2020-01-10 12:27 | NUR ---
OR CREW IN ROOM PREPARRING TO TAKE PT TO SURGERY. WILL CONTINUE TO MONITOR
--- NOTE | 2020-01-10 14:09 | MORECARE ---
CASE MANAGEMENT DISCHARGE SUMMARY PATIENT: ARVIN STONE UNIT: [id number] ADM DATE: 01/05/20 AGE: 69 : 51 SEX: F [facility] AUTHOR: NAGI PARKINSON PHYSICIAN: REFERRING PHYSICIAN: EDSON MASON MD DATE OF SERVICE: 01/10/20 Discharge Plan Patient Name: ARVIN STONE [facility] : 1950 Planned Disposition: Anticipated Discharge Date: Discharge Date: Expected LOS: Initial Reviewer: [email or web address] Initial Review Date: 01/10/2020 Generated: 01/10/20 3:09 pm Comments DCP- Discharge Planning Updated by [email or web address]: Harriet Spencer on 01/10/20 1:[address] Patient in surgery at this time. CM will re-attempt later to complete DCP assessment. Patient Name: ARVIN STONE Page [id number] at 1409 All edits/amendments must be made on the electronic document DICTATION DATE: 01/10/20 140 GUARD LIEUTENANT: YAYO 01/10/20 1409 RPT#: [id number] DC DATE: STATUS: ADM IN [facility] [address] [place] [address] END OF REPORT
--- NOTE | 2020-01-10 15:53 | NUR ---
REPORT CALLED TO GÓMEZ ON MED SURGE.
--- NOTE | 2020-01-10 16:30 | NUR ---
RECEIVED PT TO FLOOR. HELPED TRANSGER PATIENT TO BED. SITUATION COMFORTABLY. DENIES ANY NEEDS. WILL CONTINUE TO MONITOR.
--- NOTE | 2020-01-10 17:45 | NUR ---
PT IS IN BED. DOESN'T KNOW WHERE HER BELONGINGS ARE. ATTEMPTED TO CONTACT SURGERY. NO ANSWER. PT IS ATTEMPTING TO CONTACT FAMILY.
--- NOTE | 2020-01-10 18:43 | NUR ---
ADMINISTERED PRN NORCO FOR PAIN OF 06/07. PT HAS RECEIVED HER BELONGINGS. VISIBLY UPSET AND FEELS SHE HAS NO SUPPORT SYSTEM. REASSURED PT AND ASKED IF THERE WAS SOMETHING SHE NEEDED. SHE DENIED. RESTING IN BED. WILL CONTINUE TO MONITOR.
--- NOTE | 2020-01-10 19:25 | NUR ---
PATIENT WAS TAKEN DOWN EARLIER TODAY TO HAVE LEFT LEG CLOSED UP. SHE WAS TAKEN WHEN DRIVER LICENSE EXAMINER PUMP AND CAME BACK UP WITHOUT HER DRIVER LICENSE EXAMINER PUMP. ORDER DEPARTMENT SUPERVISOR HAS BEEN NOTIFIED AND I WAS TOLD TO GO AHEAD AND START HER A NEW DRIVER LICENSE EXAMINER PUMP.
[2020-01-11 01:08] VITALS: BP 118/55
[2020-01-11 05:38] VITALS: BP 125/43
[2020-01-11 06:32] LABS: ANION GAP 16.1 mmol/L (8-16); CALCIUM 7.8 mg/dL (8.5-10.1); CARBON DIOXIDE 22.3 mmol/L (21.0-32.0); CREATININE - SERUM 1.7 mg/dL (0.6-1.3)
[2020-01-11 06:42] LABS: POTASSIUM - SERUM 4.4 mmol/L (3.5-5.1)
[2020-01-11 06:50] LABS: INR 1.4 (0.85-1.17)
[2020-01-11 06:55] LABS: APTT 56.2 SECONDS (22.8-39.4)
--- NOTE | 2020-01-11 07:44 | OP ---
PATIENT NAME: ARVIN DOS SANTOS MEDICAL RECORD: [id number] :52 LOCATION:D.MS [id number] ADMISSION DATE:01/05/20 SURGEON: JAMES COHEN DO DATE OF OPERATION: 01/10/2020 PROCEDURE PERFORMED: Left lower extremity irrigation, debridement and closure of fasciotomy wounds. PREOPERATIVE DIAGNOSES: Compartment syndrome of left lower extremity and open wounds. POSTOPERATIVE DIAGNOSES: Compartment syndrome of left lower extremity and open wounds. INDICATIONS: Ms. Dos Santos is a 69-year-old female who had a compartment syndrome and I did fasciotomies on the left lower extremity on Thursday the . I told her we would leave the VAC on and then try to close it today, which we were successful. We would debride any devitalized tissue and wrap her up. Hopefully, this will be the last surgery we needed to have. She was okay with that and was aware of the risks including infection, bleeding, damage to nerves and vessels, need for further surgery, continued pain and she signed the consent. SURGEON: James Cohen DO DESCRIPTION OF PROCEDURE: The patient was taken to the operative suite, laid in supine position and given general anesthetic and LMA was placed. She was given a gram of Ancef preoperatively. The ronda and vessel loops were removed from the wound and then she was prepped with Betadine and draped and then began by irrigating the lateral wound first with Betadine and saline solution and then irrigated with over a liter of normal saline. I then closed using a 2-0 Prolene in a modified Donati type and horizontal mattress. I then dressed the medial side in the same fashion. I then irrigated with a Betadine saline solution and then normal saline over a liter and then closed in the same fashion with a modified Donati and horizontal mattresses with 2-0 Prolene. She was then wrapped with Adaptic over the incisions, 4 x 4s, Kerlix and cast padding and then wrapped with an Rickie wrap. She was then awakened and taken to recovery in stable condition. BLOOD LOSS: Minimal. COMPLICATIONS: None. TRANSINT:[id number] Voice Confirmation ID: [id number] DOCUMENT ID: [id number] JAMES COHEN DO at 0744 CC: [id number] DICTATION DATE: 01/10/20 1504 FINISHED GOODS PLANNER: 01/10/20 1637 ADM IN [facility] [address] [place] [id number]
--- NOTE | 2020-01-11 08:00 | NUR ---
HEPARIN DRIP INFUSING AT 13 AT THIS TIME. IV INTACT. NO COMPLAINTS. CALL LIGHT WITHIN REACH. DRESSING TO LEG DCI. RIGHT ARM BRUISED AND SWOLLEN. IV INTACT IN THAT ARM. EXECUTIVE ADMINISTRATIVE ASSISTANT AND IVF.
--- NOTE | 2020-01-11 08:30 | NUR ---
TURNED UP TO 14 THIS AM BC PTT ONLY 56.8.
[2020-01-11 09:57] VITALS: BP 117/36
[2020-01-11 14:41] VITALS: BP 128/96
--- NOTE | 2020-01-11 17:30 | NUR ---
PAUSED DRIP FOR 30 MIN FOR PTT BEING 148. WILL RESTART AT 1200 AND LAB TO BE DRAWN IN 6 HOURS.
[2020-01-11 17:46] VITALS: BP 85/68
[2020-01-11 20:00] VITALS: BP 122/34
--- NOTE | 2020-01-11 20:58 | NUR ---
REC'D CHGE OF SHIFT WALKING ROUNDS IN BED WATCHING TV. ACEWRAP DRSG DRY AND INTACT TO LEFT LOWER EXT. SWELLING OBSERVED TO FOOT FAINT PEDAL PULSE PALABLE.C/O SOME DECREASE IN SENSATION BUT CAN DISTGUISH WHICH TOE IS BEING TOUCHED.UP ON PILLOW. WILL CONTINUE TO MONITOR NEUROVASCULAR STATUS FOR ANY CHGES. AND FOLLOW CURRENT PLAN OF CARE.
[2020-01-12 04:00] VITALS: BP 141/48
--- NOTE | 2020-01-12 06:00 | NUR ---
I have reviewed this patient and I concur with the Shift Assessment completed by the Licensed Practical Nurse today this shift.
--- NOTE | 2020-01-12 06:00 | NUR ---
I have reviewed this patient and I concur with the Shift Assessment completed by the Licensed Practical Nurse today this shift.
[2020-01-12 07:28] LABS: ANION GAP 15.5 mmol/L (8-16); CALCIUM 7.5 mg/dL (8.5-10.1); CARBON DIOXIDE 21.5 mmol/L (21.0-32.0); CREATININE - SERUM 1.5 mg/dL (0.6-1.3)
--- NOTE | 2020-01-12 07:45 | NUR ---
ALERT AND ORIENTED. LUNGS CLEAR BILATERALLY. HEART SOUNDS S1 AND S2 HEARD IN ALL VORA. BOWEL SOUNDS ACTIVE X 4. DRSG TO LLE C/D/I. WOUND VAC IN PLACE. IV TO RFA PATENT WITHOUT REDNESS. IV TO LFA PATENT WITHOUT REDNESS. DENIES PAIN. DENIES NEEDS. BED LOW. CALL SCANLON AND PERSONAL ITEMS IN REACH. WILL CONTINUE TO MONITOR.
[2020-01-12 07:49] LABS: INR 1.3 (0.85-1.17)
[2020-01-12 08:00] LABS: APTT 167.3 SECONDS (22.8-39.4)
--- NOTE | 2020-01-12 08:13 | NUR ---
DR MASON NOTIFED OF APTT 167.3. STATES TO DC HEPARIN DRIP. STATES TO DC COMMUNICATIONS AND SIGNALS SUPERVISOR. STATES TO DC RECINOS. [facility] IS PUTTING IN ORDERS NOW. DR COHEN AT DESK [facility] WILL PUT IN WOUND CARE ORDERS. BOTH STATE ANTICIPATE DC TOMORROW.
[2020-01-12] MEDS ORDERED: COUMADIN5 MG PO (08:16)
[2020-01-12] MEDS ORDERED: LOVENOX40 MG/0.4 SC (08:16)
--- NOTE | 2020-01-12 08:30 | NUR ---
RECINOS DC PER ORDER. HULL BUILDER DC PER ORDER. HEPARIN DRIP DC PER ORDER. LOVENOX SHOT GIVEN. PATIENT DENIES NEEDS. WILL MONITOR TO SEE IF URINATES. PATIENT AWARE NEEDS TO URINATE TO DC HOME.
[2020-01-12] MEDS ORDERED: PERCOCET 5-3251 TAB PO (08:35)
[2020-01-12 08:49] VITALS: BP 117/95
--- NOTE | 2020-01-12 11:11 | NUR ---
PATIENT SITTING ON FLOOR AT END OF BED. STATES TRIED TO GET TO BATHROOM BUT SLID AND FELL. STATES NO PAIN. STATES NO INJURY. NO NEW INJURIES OR BRUISING NOTED. DR COHEN AND DR MASON BOTH MADE AWARE. DR COHEN STATES IF ANY PAIN, XRAY THAT AREA. ORDERS FOR DRSG CHANGED FOR HOME HEALTH ALSO GIVEN BY DR COHEN AND PLACED IN NURSING NOTE.
[2020-01-12 12:17] VITALS: BP 118/81
--- NOTE | 2020-01-12 13:59 | NUR ---
RESTING IN BED. DENIES NEEDS. WILL CONTINUE TO MONITOR.
--- NOTE | 2020-01-12 15:22 | MORECARE ---
CASE MANAGEMENT DISCHARGE SUMMARY PATIENT: ARVIN STONE UNIT: [id number] ADM DATE: 01/05/20 AGE: 69 : 51 SEX: F ROOM/BED: D.2231 AUTHOR: NAGI PARKINSON PHYSICIAN: REFERRING PHYSICIAN: EDSON MASON MD DATE OF SERVICE: 01/12/20 Discharge Plan Patient Name: ARVIN STONE [facility] [facility] 1950 Planned Disposition: Anticipated Discharge Date: Discharge Date: Expected LOS: Initial Reviewer: [email or web address] Initial Review Date: 01/10/2020 Generated: 01/12/20 4:21 pm DCP- Discharge Planning Updated by [email or web address]: Harriet Spencer on 01/10/20 1:[address] Patient in surgery at this time. CM will re-attempt later to complete DCP assessment. External Providers External Provider: [facility] Next Contact Date: Service Request Date: Service Type: Resolution: Reviewer: Comments: [facility] Next Contact Date: Service Request Date: Service Type: Resolution: Reviewer: Comments: External Provider: [facility] Next Contact Date: Service Request Date: Service Type: Resolution: Reviewer: Comments: Last DP export: 01/10/20 1:09 p Patient Name: ARVIN STONE Page [id number] at 1522 All edits/amendments must be made on the electronic document DICTATION DATE: 01/12/20 152 SPEECH THERAPIST TECHNICIAN: YAYO 01/12/20 1521 RPT#: [id number] DC DATE: STATUS: ADM IN [facility] [address] [place] [address] END OF REPORT
--- NOTE | 2020-01-12 15:31 | MORECARE ---
CASE MANAGEMENT DISCHARGE SUMMARY PATIENT: ARVIN STONE UNIT: [id number] ADM DATE: 01/05/20 AGE: 69 : 51 SEX: F ROOM/BED: D.2231 AUTHOR: NAGI PARKINSON PHYSICIAN: REFERRING PHYSICIAN: EDSON MASON MD DATE OF SERVICE: 01/12/20 Discharge Plan Patient Name: ARVIN STONE [facility] [facility] 1950 Planned Disposition: Home Health Service Anticipated Discharge Date: Discharge Date: Expected LOS: Initial Reviewer: [email or web address] Initial Review Date: 01/10/2020 Generated: 01/12/20 4:31 pm DCP- Discharge Planning Updated by [email or web address]: Harriet Spencer on 01/10/20 1:[address] Patient in surgery at this time. CM will re-attempt later to complete DCP assessment. DCPIA - Discharge Planning Initial Assessment Updated by [email or web address]: Jazmine Ceja on 01/12/20 3:25 pm * Is the patient Alert and Oriented? Yes * How many steps to enter\exit or inside your home? * PCP [facility] * Pharmacy [facility] * Preadmission Environment Home Alone * ADLs Independent * Equipment None * List name and contact numbers for known caregivers / representatives who currently or will assist patient after discharge: LOPEZ SAUCEDO [phone] * Verbal permission to speak to the caregivers and representatives has been obtained from the patient. N/A * Community resources currently utilized None * Additional services required to return to the preadmission environment? Yes * Can the patient safely return to the preadmission environment? Yes * Has this patient been hospitalized within the prior 30 days at any hospital? No Last DP export: 01/12/20 2:22 p Patient Name: ARVIN STONE Page [id number] at 1531 All edits/amendments must be made on the electronic document DICTATION DATE: 01/12/20 1531 ASSOCIATE EDITOR: YAYO 01/12/20 1531 RPT#: [id number] DC DATE: STATUS: ADM IN [facility] [address] [place] [address] END OF REPORT
--- NOTE | 2020-01-12 16:41 | MORECARE ---
CASE MANAGEMENT DISCHARGE SUMMARY PATIENT: ARVIN STONE UNIT: [id number] ADM DATE: 01/05/20 AGE: 69 : 51 SEX: F ROOM/BED: D.2231 AUTHOR: NAGI PARKINSON PHYSICIAN: REFERRING PHYSICIAN: EDSON MASON MD DATE OF SERVICE: 01/12/20 Discharge Plan Patient Name: ARVIN STONE Facility: [facility]:[place] : 1950 Planned Disposition: Home Health Service Anticipated Discharge Date: Discharge Date: Expected LOS: Initial Reviewer: [email or web address] Initial Review Date: 01/10/2020 Generated: 01/12/20 5:40 pm Comments DCP- Discharge Planning Updated by [email or web address]: Jazmine Ceja on 01/12/20 3:[address] walker has been delivered to the hospital, [facility] is [facility] of Network. [facility] is trying to see if they can get someone to start care on Sat. 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 CM educated patient on the CM role and verbal consent given by patient to complete assessment. Patient lives at home alone, but her friend will be staying with her. Her friend will also be her salesperson driver home. At discharge patient plans to return home and feels this is a safe discharge. CM discussed availability of home health, rehab services, and medical equipment. She will need a walker and I have ordered it from [facility] and they will deliver it to the hospital. I have sent a referral to [facility] and [facility] to see which one could take the patient and SOC on Sat. YOBANY was signed and she just did not want Jan and did not care what company for DME. IMM served and explained. I have also called her sister to let her know the above. Patient denied known discharge needs at this time. CM will continue to follow and will assist as needed with dc plans/needs. Cryogenic Transport Driver: Jazmine Ceja DCP- Discharge Planning Updated by [email or web address]: Harriet Spencer on 01/10/20 1:[address] Patient in surgery at this time. CM will re-attempt later to complete DCP assessment. DCPIA - Discharge Planning Initial Assessment Updated by [email or web address]: Jazmine Ceja on 01/12/20 3:25 pm * Is the patient Alert and Oriented? Yes * How many steps to enter\exit or inside your home? * PCP [facility] * Pharmacy [facility] * Preadmission Environment Home Alone * ADLs Independent * Equipment None * List name and contact numbers for known caregivers / representatives who currently or will assist patient after discharge: LOPEZ LEWIS [phone] * Verbal permission to speak to the caregivers and representatives has been obtained from the patient. N/A * Community resources currently utilized None * Additional services required to return to the preadmission environment? Yes * Can the patient safely return to the preadmission environment? Yes * Has this patient been hospitalized within the prior 30 days at any hospital? No Coverage Notice Reviewer: [email or web address] Alda Ceja Notice Issued Date-Time: 01/12/2020 14:58 Notice Type: IM Discharge Notice Notice Delivered To: Patient Relationship to Patient: Upset Operator Name: Delivery Method: HAND - Hand Delivered Ame Days: Prior Verbal Notification: Recipient Understood Notice: Yes Recipient Signature: Yes Med Rec Note Co-signed by Attending: Coverage Notice Comment: Reviewer: [email or web address] Alda Ceja Notice Issued Date-Time: 01/12/2020 14:58 Notice Type: Patient Choice Letter Notice Delivered To: Patient Relationship to Patient: Upset Operator Name: Delivery Method: HAND - Hand Delivered Ame Days: Prior Verbal Notification: Recipient Understood Notice: Yes Recipient Signature: Yes Med Rec Note Co-signed by Attending: Coverage Notice Comment: yobany with hh and dme Last DP export: 01/12/20 2:31 p Patient Name: ARVIN STONE Page [id number] at 1641 All edits/amendments must be made on the electronic document DICTATION DATE: 01/12/20 1641 SPECIAL EDUCATION PROFESSIONAL: YAYO 01/12/20 1641 RPT#: [id number] DC DATE: STATUS: ADM IN [facility] [address] [place] [address] END OF REPORT
--- NOTE | 2020-01-12 17:00 | NUR ---
DISCHARGE EDUCATION PROVIDED BOTH WRITTEN AND VERBAL. VERBALIZED UNDERSTANDING. DENIES FURTHER QUESTIONS. IV REMOVED FROM [facility]FA WITH TIP INTACT. WALKER ADJUSTED FOR PATIENT HEIGHT AND GIVEN TO PATIENT FOR DC. ASSISTED PATIENT TO GET DRESSED. WAITING RIDE.
[2020-01-12 17:15] VITALS: BP 93/53
--- NOTE | 2020-01-12 17:29 | NUR ---
PATIENT DC HOME WITH ALL BELONGINGS.
--- NOTE | 2020-01-13 12:32 | MORECARE ---
CASE MANAGEMENT DISCHARGE SUMMARY PATIENT: ARVIN STONE UNIT: [id number] ADM DATE: 01/05/20 AGE: 69 : 51 SEX: F ROOM/BED: D.2231 AUTHOR: NAGI PARKINSON PHYSICIAN: REFERRING PHYSICIAN: EDSON MASON MD DATE OF SERVICE: 01/13/20 Discharge Plan Patient Name: ARVIN STONE Facility: [facility] : 1950 Planned Disposition: Home Health Service Anticipated Discharge Date: Discharge Date: 01/12/2020 Expected LOS: 0 Initial Reviewer: [email or web address] Initial Review Date: 01/10/2020 Generated: 01/13/20 1:32 pm Comments DCP- Discharge Planning Updated by [email or web address]: Jazmine Ceja on 01/12/20 3:[address] walker has been delivered to the hospital, [facility] is out of Network. [facility] is trying to see if they can get someone to start care on Sat. 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 CM educated patient on the CM role and verbal consent given by patient to complete assessment. Patient lives at home alone, but her friend will be staying with her. Her friend will also be her carry all driver home. At discharge patient plans to return home and feels this is a safe discharge. CM discussed availability of home health, rehab services, and medical equipment. She will need a walker and I have ordered it from [facility] and they will deliver it to the hospital. I have sent a referral to [facility] to see which one could take the patient and SOC on Sat. YOBANY was signed and she just did not want [place] and did not care what company for DME. IMM served and explained. I have also called her sister to let her know the above. Patient denied known discharge needs at this time. CM will continue to follow and will assist as needed with dc plans/needs. Electrocardiogram Technician: Jazmine Ceja DCP- Discharge Planning Updated by [email or web address]: Harriet Spencer on 01/10/20 1:[address] Patient in surgery at this time. CM will re-attempt later to complete DCP assessment. DCPIA - Discharge Planning Initial Assessment Updated by [email or web address]: Jazmine Ceja on 01/12/20 3:25 pm * Is the patient Alert and Oriented? Yes * How many steps to enter\exit or inside your home? * PCP MARLON * Pharmacy [facility] * Preadmission Environment Home Alone * ADLs Independent * Equipment None * List name and contact numbers for known caregivers / representatives who currently or will assist patient after discharge: LOPEZ DOEPOORNIMA [phone] * Verbal permission to speak to the caregivers and representatives has been obtained from the patient. N/A * Community resources currently utilized None * Additional services required to return to the preadmission environment? Yes * Can the patient safely return to the preadmission environment? Yes * Has this patient been hospitalized within the prior 30 days at any hospital? No Coverage Notice Reviewer: [email or web address] Alda Ceja Notice Issued Date-Time: 01/12/2020 14:58 Notice Type: IM Discharge Notice Notice Delivered To: Patient Relationship to Patient: Data Capture Clerk Name: Delivery Method: HAND - Hand Delivered Ame Days: Prior Verbal Notification: Recipient Understood Notice: Yes Recipient Signature: Yes Med Rec Note Co-signed by Attending: Coverage Notice Comment: Reviewer: [email or web address] Alda Ceja Notice Issued Date-Time: 01/12/2020 14:58 Notice Type: Patient Choice Letter Notice Delivered To: Patient Relationship to Patient: Data Capture Clerk Name: Delivery Method: HAND - Hand Delivered Ame Days: Prior Verbal Notification: Recipient Understood Notice: Yes Recipient Signature: Yes Med Rec Note Co-signed by Attending: Coverage Notice Comment: yobany with hh and dme Last DP export: 01/12/20 3:41 p Patient Name: ARVIN STONE Page [id number] at 1232 All edits/amendments must be made on the electronic document DICTATION DATE: 01/13/20 1232 INDIGO MIXER: YAYO 01/13/20 1232 RPT#: [id number] DC DATE:01/12/20 STATUS: DIS IN [facility] [address] [place] [address] END OF REPORT
--- NOTE | 2020-01-13 12:42 | MORECARE ---
CASE MANAGEMENT DISCHARGE SUMMARY PATIENT: ARVIN STONE UNIT: [id number] ADM DATE: 01/05/20 AGE: 69 : 51 SEX: F ROOM/BED: D.2231 AUTHOR: NAGI PARKINSON PHYSICIAN: REFERRING PHYSICIAN: EDSON MASON MD DATE OF SERVICE: 01/13/20 Discharge Plan Patient Name: ARVIN STONE Facility: [facility]:[place] : 1950 Planned Disposition: Home Health Service Anticipated Discharge Date: Discharge Date: 01/12/2020 Expected LOS: 0 Initial Reviewer: [email or web address] Initial Review Date: 01/10/2020 Generated: 01/13/20 1:41 pm Comments DCP- Discharge Planning Updated by [email or web address]: Jazmine Ceja on 01/12/20 3:[address] walker has been delivered to the hospital, [facility] is out of Network. [facility] is trying to see if they can get someone to start care on Sat. 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 CM educated patient on the CM role and verbal consent given by patient to complete assessment. Patient lives at home alone, but her friend will be staying with her. Her friend will also be her motor coach bus driver home. At discharge patient plans to return home and feels this is a safe discharge. CM discussed availability of home health, rehab services, and medical equipment. She will need a walker and I have ordered it from [facility] and they will deliver it to the hospital. I have sent a referral to [facility] to see which one could take the patient and SOC on Sat. YOBANY was signed and she just did not want [place] and did not care what company for DME. IMM served and explained. I have also called her sister to let her know the above. Patient denied known discharge needs at this time. CM will continue to follow and will assist as needed with dc plans/needs. Dye Automation Operator: Jazmine Ceja DCP- Discharge Planning Updated by [id number]: Harriet Spencer on 01/10/20 1:[address] Patient in surgery at this time. CM will re-attempt later to complete DCP assessment. DCPIA - Discharge Planning Initial Assessment Updated by [email or web address]: Jazmine Ceja on 01/12/20 3:25 pm * Is the patient Alert and Oriented? Yes * How many steps to enter\exit or inside your home? * PCP MARLON * Pharmacy [facility] * Preadmission Environment Home Alone * ADLs Independent * Equipment None * List name and contact numbers for known caregivers / representatives who currently or will assist patient after discharge: LOPEZ DOEPOORNIMA [phone] * Verbal permission to speak to the caregivers and representatives has been obtained from the patient. N/A * Community resources currently utilized None * Additional services required to return to the preadmission environment? Yes * Can the patient safely return to the preadmission environment? Yes * Has this patient been hospitalized within the prior 30 days at any hospital? No Coverage Notice Reviewer: [id number] Alda Ceja Notice Issued Date-Time: 01/12/2020 14:58 Notice Type: IM Discharge Notice Notice Delivered To: Patient Relationship to Patient: Nail Galvanizer Name: Delivery Method: HAND - Hand Delivered Ame Days: Prior Verbal Notification: Recipient Understood Notice: Yes Recipient Signature: Yes Med Rec Note Co-signed by Attending: Coverage Notice Comment: Reviewer: [id number] Alda Ceja Notice Issued Date-Time: 01/12/2020 14:58 Notice Type: Patient Choice Letter Notice Delivered To: Patient Relationship to Patient: Nail Galvanizer Name: Delivery Method: HAND - Hand Delivered Ame Days: Prior Verbal Notification: Recipient Understood Notice: Yes Recipient Signature: Yes Med Rec Note Co-signed by Attending: Coverage Notice Comment: yobany with hh and dme Last DP export: 01/13/20 11:32 a Patient Name: ARVIN STONE Page [id number] Electronically Signed by NAGI [facility]ra on 01/13/20 at 1242 All edits/amendments must be made on the electronic document DICTATION DATE: 01/13/20 1241 PLASTIC SURGERY COORDINATOR: YAYO 01/13/20 1241 RPT#: [id number] DC DATE:01/12/20 STATUS: DIS IN [facility] [address] [place] [address] END OF REPORT
== END 2020-01-12 17:30 | disposition home health service (06) | DRG 982 ==
LOC: D.US 11:12 → D.MS 13:07 → D.ICU 13:07 → D.CVICU 13:07 → D.ICU 01-06 16:45 → D.CVICU 01-09 19:10 → D.MS 01-10 15:53
PROVIDERS: Orthopaedic Surgery; Radiology Diagnostic Radiology; Specialist; ADMIT Family Medicine; ATTEND Family Medicine
PROC: 3E05317 Introduction of Other Thrombolytic into Peripheral Artery, Percutaneous Approach (ICD-10-PCS; 2020-01-06)
PROC: 0KNT0ZZ Release Left Lower Leg Muscle, Open Approach (ICD-10-PCS; principal; 2020-01-08 12:02)
DX: T82.868A Thrombosis due to vascular prosthetic devices, implants and grafts, initial encounter (principal); T79.A22A Traumatic compartment syndrome of left lower extremity, initial encounter; I25.10 Atherosclerotic heart disease of native coronary artery without angina pectoris; I65.9 Occlusion and stenosis of unspecified precerebral artery; Z86.73 Personal history of transient ischemic attack (TIA), and cerebral infarction without residual deficits; N18.3 Chronic kidney disease, stage 3 (moderate)

== ENCOUNTER 2020-01-14 11:10 | Inpatient (IN) | payer OTHER ==
[~2020-01-14] VITALS: Ht 157.5 cm; Wt 56.7 kg
[2020-01-14 08:00] VITALS: BP 105/60
[~2020-01-14 11:10] MED LIST changes: +COUMADIN5 MG PO; +LOVENOX40 MG/0.4 SC; +LYRICA75 MG PO; +PERCOCET 5-3251 TAB PO; +ULTRAM50 MG PO
[2020-01-14 11:48] LABS: BASOPHILS 0.2 % (0-2); EOSINOPHILS 2.3 % (0-7); HEMATOCRIT 23.6 % (36.0-48.0); IMMATURE GRANULOCYTES 0.2 % (0-5); LYMPHOCYTES 13.1 % (15-50); MCH 27.9 pg (26.0-34.0); MCHC 31.4 g/dL (31.0-37.0); MCV 89.1 fL (80.0-100.0); MEAN PLATELET VOLUME 9.1 fL (7.4-10.4); MONOCYTES 6.3 % (2-11); NEUTROPHILS 77.9 % (40-80); RBC 2.65 10x6/uL (4.00-5.40); RDW 13.7 % (11.5-14.5); WBC 6.4 10x3/uL (4.8-10.8)
[2020-01-14 11:56] VITALS: BP 165/48
[2020-01-14 11:57] LABS: CALC OSMOLALITY 288 mosm/kg (275-300); CALCIUM 8.5 mg/dL (8.5-10.1); CARBON DIOXIDE 24.1 mmol/L (21.0-32.0); CHLORIDE - SERUM 106 mmol/L (98-107); CREATININE - SERUM 1.5 mg/dL (0.6-1.3); GLUCOSE 96 mg/dL (74-106); POTASSIUM - SERUM 3.9 mmol/L (3.5-5.1); SODIUM 144 mmol/L (136-145); UREA NITROGEN 19 mg/dL (7-18); eGFR NON AFRICAN AMERICAN 37 mL/min (90-120)
[2020-01-14 12:11] LABS: ALBUMIN 2.5 g/dL (3.4-5.0); ALKALINE PHOSPHATASE 66 U/L (30-120); ALT (SGPT) 20 U/L (10-68); CKMB 1.3 U/L (0.0-3.6); CREATINE KINASE 734 UL (21-215); PRO BNP 3481 pg/mL (0-125); PROTEIN - SERUM 6.1 g/dL (6.4-8.2); TROPONIN-I < 0.017 ng/mL (0.000-0.060)
[2020-01-14 12:12] LABS: HEMOGLOBIN 7.4 g/dL (12-16); PLATELET COUNT 300 10x3/uL (130-400)
[2020-01-14 12:19] LABS: INR 2.77 (0.85-1.17); PROTIME 28.8 SECONDS (11.6-15.0)
[2020-01-14 12:20] LABS: APTT 50.4 SECONDS (22.8-39.4)
[2020-01-14 13:24] VITALS: BP 158/68
--- NOTE | 2020-01-14 13:24 | NUR ---
PT SITTING UP IN BED. PT TOLERATED PROVIDED WITH DRINK. NOT VOMITING AT THIS TIME. COLOR WNL FOR RACE. RESPIRATIONS ARE EVEN AND UNLABORED. NO DISTRESS NOTED. WILL CONTINUE TO MONITOR.
[2020-01-14 14:48] VITALS: BP 182/63
[2020-01-14 16:00] VITALS: BP 182/63
[2020-01-14 17:38] VITALS: BP 183/64
--- NOTE | 2020-01-14 17:58 | NUR ---
RT ARM DOES NOT HAVE A DVT PER REPORT. STARTING HER UNIT OF BLOOD. BP TAKEN ON RT ARM IS UP 175/54, THE RIGHT LEG BP IS 106/34.
--- NOTE | 2020-01-14 19:25 | NUR ---
BED SIDE REPORT RECEIVED. PATIENT CALM AND SITTING UP IN BED. BLOOD TRANSFUSION INFUSING AT THIS TIME. PATIENT DENIES PAIN, DISCOMFORT, OR SHORTNESS OF BREATH. CALL LIGHT CLOSE. CPOC.
--- NOTE | 2020-01-14 20:59 | NUR ---
BLOOD ADMINISTRATION COMPLETED. PATIENT ALERT AND ORIENTED. VITAL SIGNS STABLE.
--- NOTE | 2020-01-14 21:55 | NUR ---
PATIENT COMPLAINING OF LEG PAIN. ADMINISTERED PAIN MEDICINE PER ORDER.
[2020-01-15] VITALS (7 sets, daily range): BP systolic 83–137; BP diastolic 41–100
--- NOTE | 2020-01-15 00:25 | NUR ---
RESTING WITH NO SIGNS OR SYMPTOMS OF DISTRESS AT THIS TIME. CPOC
[2020-01-15 05:42] LABS: BASOPHILS 0.4 % (0-2); EOSINOPHILS 4.8 % (0-7); HEMATOCRIT 25.9 % (36.0-48.0); HEMOGLOBIN 8.1 g/dL (12-16); IMMATURE GRANULOCYTES 0.5 % (0-5); LYMPHOCYTES 15.2 % (15-50); MCH 28.6 pg (26.0-34.0); MCHC 31.3 g/dL (31.0-37.0); MEAN PLATELET VOLUME 9.3 fL (7.4-10.4); NEUTROPHILS 70.1 % (40-80); PLATELET COUNT 267 10x3/uL (130-400); RBC 2.83 10x6/uL (4.00-5.40); RDW 14.1 % (11.5-14.5); WBC 5.6 10x3/uL (4.8-10.8)
[2020-01-15 05:43] LABS: MCV 91.5 fL (80.0-100.0)
[2020-01-15 06:06] LABS: CALCIUM 7.7 mg/dL (8.5-10.1); CARBON DIOXIDE 23.7 mmol/L (21.0-32.0); CREATININE - SERUM 1.4 mg/dL (0.6-1.3); MAGNESIUM - SERUM 1.4 mg/dL (1.8-2.4); PHOSPHOROUS 3.6 mg/dL (2.5-4.9); POTASSIUM - SERUM 3.7 mmol/L (3.5-5.1)
--- NOTE | 2020-01-15 09:36 | NUR ---
SHE IS STILL NAUSEATED, DOES NOT WANT TO EAT. PRN PAIN AND NAUSEA GIVEN. SHE FEELS THAT HER RIGHT ARM IS LESS SWOLLEN, BUT STILL SWOLLEN. THE SURTURES ARE IN THE LEFT LOWER LEG WITH DRESSING CLEAN & DRY WITH JJ.
--- NOTE | 2020-01-15 12:23 | MORECARE ---
CASE MANAGEMENT DISCHARGE SUMMARY PATIENT: ARVIN STONE UNIT: [id number] ADM DATE: 01/14/20 AGE: 69 : 51 SEX: F ROOM/BED: D.2218 AUTHOR: NAGI PARKINSON PHYSICIAN: REFERRING PHYSICIAN: ILENE CABRAL MD DATE OF SERVICE: 01/15/20 Discharge Plan Patient Name: ARVIN STONE [facility] [facility] 1950 Planned Disposition: Inpatient Rehab Facility Anticipated Discharge Date: Discharge Date: Expected LOS: Initial Reviewer: [email or web address] Initial Review Date: 01/14/2020 Generated: 01/15/20 1:22 pm Patient Name: ARVIN STONE Page 78685 at 1223 All edits/amendments must be made on the electronic document DICTATION DATE: 01/15/20 1223 DIAL MOUNTER: YAYO 01/15/20 1223 RPT#: [id number] DC DATE: STATUS: ADM IN [facility] [address] [place] [address] END OF REPORT
--- NOTE | 2020-01-15 12:29 | MORECARE ---
CASE MANAGEMENT DISCHARGE SUMMARY PATIENT: ARVIN STONE UNIT: [id number] ADM DATE: 01/14/20 AGE: 69 : 51 SEX: F ROOM/BED: D.2218 AUTHOR: NAGI PARKINSON PHYSICIAN: REFERRING PHYSICIAN: ILENE CABRAL MD DATE OF SERVICE: 01/15/20 Discharge Plan Patient Name: ARVIN STONE Facility: [facility]:[place] : 1950 Planned Disposition: Inpatient Rehab Facility Anticipated Discharge Date: Discharge Date: Expected LOS: Initial Reviewer: [email or web address] Initial Review Date: 01/14/2020 Generated: 01/15/20 1:29 pm DCPIA - Discharge Planning Initial Assessment Updated by [email or web address]: Radha Garrett on 01/15/20 12:23 pm * Is the patient Alert and Oriented? Yes * How many steps to enter\exit or inside your home? * PCP Dr. Love * Pharmacy [facility] [address] * Preadmission Environment Home Alone * ADLs Partial Dependent * Partial ADLs (Assistance needed) Ambulation Bathing Dressing * Equipment Walker * Other Equipment NA * List name and contact numbers for known caregivers / representatives who currently or will assist patient after discharge: Ally Whitney (sister) [phone] ([place]) * Verbal permission to speak to the caregivers and representatives has been obtained from the patient. Yes * Community resources currently utilized Home Health * Please name any agencies selected above. [facility] * Additional services required to return to the preadmission environment? Yes * Can the patient safely return to the preadmission environment? No * Has this patient been hospitalized within the prior 30 days at any hospital? Yes Last DP export: 01/15/20 11:23 a Patient Name: ARVIN STONE Page 83113 at 1229 All edits/amendments must be made on the electronic document DICTATION DATE: 01/15/20 122 CHEMICAL ETCHING PROCESSOR: YAYO 01/15/20 1229 RPT#: [id number] DC DATE: STATUS: ADM IN [facility] [address] [place] [address] END OF REPORT
--- NOTE | 2020-01-15 12:42 | MORECARE ---
CASE MANAGEMENT DISCHARGE SUMMARY PATIENT: ARVIN STONE UNIT: [id number] ADM DATE: 01/14/20 AGE: 69 : 51 SEX: F ROOM/BED: D.2218 AUTHOR: IGGY,DOC PHYSICIAN: REFERRING PHYSICIAN: ILENE CABRAL MD DATE OF SERVICE: 01/15/20 Discharge Plan Patient Name: ARVIN STONE Facility: [facility]:[place] : 1950 Planned Disposition: Inpatient Rehab Facility Anticipated Discharge Date: Discharge Date: Expected LOS: Initial Reviewer: [id number] Initial Review Date: 01/14/2020 Generated: 01/15/20 1:41 pm Comments DCP- Discharge Planning Updated by [email or web address]: Radha Garrett on 01/15/20 11:[address] CM met with patient regarding DC plans. Alert/Oriented, lives alone in an apartment on the 1st floor. PCP: Dr. Love. Pharmacy: [address] [facility]: [facility]. DME: walker. Patient states she requires assistance with bathing, ambulation. Patient Choice for [facility], [facility] signed and on chart. Emergency contact: Ally Rendon (sister) [phone] ([place]). Patient gives permission to speak with her sister. Patient states she has no one to assist her at home. Admits to hospitalization within past 30 days. Hx: Breast Cancer 2007, reserve Left arm. Patient's insurance will require prior authorization for Rehab. Brianne Liang with [employer] [facility] and will fax required information. . DCPIA - Discharge Planning Initial Assessment Updated by [email or web address]: Radha Garrett on 01/15/20 12:23 pm * Is the patient Alert and Oriented? Yes * How many steps to enter\exit or inside your home? * PCP Dr. Love * Pharmacy [facility] [address] * Preadmission Environment Home Alone * ADLs Partial Dependent * Partial ADLs (Assistance needed) Ambulation Bathing Dressing * Equipment Walker * Other Equipment NA * List name and contact numbers for known caregivers / representatives who currently or will assist patient after discharge: Ally Whitney (sister) [phone] ([place]) * Verbal permission to speak to the caregivers and representatives has been obtained from the patient. Yes * Community resources currently utilized Home Health * Please name any agencies selected above. [facility] * Additional services required to return to the preadmission environment? Yes * Can the patient safely return to the preadmission environment? No * Has this patient been hospitalized within the prior 30 days at any hospital? Yes Last DP export: 01/15/20 11:29 a Patient Name: ARVIN STONE Page 96220 at 1242 All edits/amendments must be made on the electronic document DICTATION DATE: 01/15/20 1241 INTERNATIONAL SOURCING MANAGER: YAYO 01/15/20 1241 RPT#: [id number] DC DATE: STATUS: ADM IN [facility] [address] [place] [address] END OF REPORT
--- NOTE | 2020-01-15 13:18 | MORECARE ---
CASE MANAGEMENT DISCHARGE SUMMARY PATIENT: ARVIN STONE UNIT: [id number] ADM DATE: 01/14/20 AGE: 69 : 51 SEX: F ROOM/BED: D.2218 AUTHOR: IGGY,DOC PHYSICIAN: REFERRING PHYSICIAN: ILENE CABRAL MD DATE OF SERVICE: 01/15/20 Discharge Plan Patient Name: ARVIN STONE Facility: [facility]:[place] : 1950 Planned Disposition: Inpatient Rehab Facility Anticipated Discharge Date: Discharge Date: Expected LOS: Initial Reviewer: [email or web address] Initial Review Date: 01/14/2020 Generated: 01/15/20 2:18 pm Comments DCP- Discharge Planning Updated by [email or web address]: Radha Garrett on 01/15/20 11:[address] CM met with patient regarding DC plans. Alert/Oriented, lives alone in an apartment on the 1st floor. PCP: Dr. Love. Pharmacy: [address] [facility]: [facility]. DME: walker. Patient states she requires assistance with bathing, ambulation. Patient Choice for [facility], [facility] signed and on chart. Emergency contact: Ally Rendon (sister) [phone] ([place]). Patient gives permission to speak with her sister. Patient states she has no one to assist her at home. Admits to hospitalization within past 30 days. Hx: Breast Cancer 2007, reserve Left arm. Patient's insurance will require prior authorization for Rehab. Brianne Liang with [facility] and will fax required information. . DCPIA - Discharge Planning Initial Assessment Updated by [email or web address]: Radha Garrett on 01/15/20 12:23 pm * Is the patient Alert and Oriented? Yes * How many steps to enter\exit or inside your home? * PCP Dr. Love * Pharmacy [facility] [address] * Preadmission Environment Home Alone * ADLs Partial Dependent * Partial ADLs (Assistance needed) Ambulation Bathing Dressing * Equipment Walker * Other Equipment NA * List name and contact numbers for known caregivers / representatives who currently or will assist patient after discharge: Ally Whitney (sister) [phone] ([place]) * Verbal permission to speak to the caregivers and representatives has been obtained from the patient. Yes * Community resources currently utilized Home Health * Please name any agencies selected above. [facility] * Additional services required to return to the preadmission environment? Yes * Can the patient safely return to the preadmission environment? No * Has this patient been hospitalized within the prior 30 days at any hospital? Yes External Providers External Provider: [facility] Contact Date: Service Request Date: Service Type: Resolution: Reviewer: Comments: Last DP export: 01/15/20 11:42 a Patient Name: ARVIN STONE Page 12786 at 1318 All edits/amendments must be made on the electronic document DICTATION DATE: 01/15/201317 AIRPORT OPERATIONS COORDINATOR: YAYO 01/15/20 1318 RPT#: [id number] DC DATE: STATUS: ADM IN [facility] [address] [place] [address] END OF REPORT
--- NOTE | 2020-01-15 13:37 | MORECARE ---
CASE MANAGEMENT DISCHARGE SUMMARY PATIENT: ARVIN STONE UNIT: [id number] ADM DATE: 01/14/20 AGE: 69 : 51 SEX: F ROOM/BED: D.2218 AUTHOR: IGGY,DOC PHYSICIAN: REFERRING PHYSICIAN: ILENE CABRAL MD DATE OF SERVICE: 01/15/20 Discharge Plan Patient Name: ARVIN STONE Facility: [facility]:[place] : 1950 Planned Disposition: Inpatient Rehab Facility Anticipated Discharge Date: Discharge Date: Expected LOS: Initial Reviewer: [email or web address] Initial Review Date: 01/14/2020 Generated: 01/15/20 2:36 pm Comments DCP- Discharge Planning Updated by [email or web address]: Radha Garrett on 01/15/20 12:[address] Plan: [facility]. Faxed required information. CM met with patient regarding DC plans. Alert/Oriented, lives alone in an apartment on the 1st floor. PCP: Dr. Love. Pharmacy: [address] [facility]: [facility]. DME: walker. Patient states she requires assistance with bathing, ambulation. Patient Choice for #1 [facility], #2 [facility] signed and on chart. Emergency contact: Ally Rendon (sister) [phone] ([place]). Patient gives permission to speak with her sister. Patient states she has no one to assist her at home. Admits to hospitalization within past 30 days. Hx: Breast Cancer 2007, reserve Left arm. Patient's insurance will require prior authorization for Rehab. Brianne Liang with [facility] and will fax required information. . DCPIA - Discharge Planning Initial Assessment Updated by [email or web address]: Radha Garrett on 01/15/20 12:23 pm * Is the patient Alert and Oriented? Yes * How many steps to enter\exit or inside your home? * PCP Dr. Love * Pharmacy [facility] [address] * Preadmission Environment Home Alone * ADLs Partial Dependent * Partial ADLs (Assistance needed) Ambulation Bathing Dressing * Equipment Walker * Other Equipment NA * List name and contact numbers for known caregivers / representatives who currently or will assist patient after discharge: Ally Whitney (sister) [phone] ([place]) * Verbal permission to speak to the caregivers and representatives has been obtained from the patient. Yes * Community resources currently utilized Home Health * Please name any agencies selected above. [facility] * Additional services required to return to the preadmission environment? Yes * Can the patient safely return to the preadmission environment? No * Has this patient been hospitalized within the prior 30 days at any hospital? Yes Last DP export: 01/15/20 12:18 p Patient Name: ARVIN STONE Page [id number] at 1337 All edits/amendments must be made on the electronic document DICTATION DATE: 01/15/201335 LMFT: YAYO 01/15/201335 RPT#: [id number] DC DATE: STATUS: ADM IN [facility] [address] [place] [address] END OF REPORT
--- NOTE | 2020-01-15 19:00 | NUR ---
BEDSIDE REPORT RECEIVED AND CARE OF PT ASSUMED. PT LYING IN SUPINE POSITION WITH EYES CLOSED AND EASY RESPIRATIONS. IV TO RIGHT HAND PATENT WITH NS INFUSING AT 50 ML/HR. TELEMETRY IN PLACE AND READING SR AT THIS ASSESSMENT. WILL MONITOR FOR NEEDS.
--- NOTE | 2020-01-15 20:28 | NUR ---
HS MEDICATIONS GIVEN TO INCLUDE NORCO FOR PAIN, PER PRN ORDER. WILL CONTINUE TO MONITOR FOR NEEDS.
--- NOTE | 2020-01-15 22:28 | NUR ---
PT MOANING AND FACIAL GRIMACING, C/O SEVERE PAIN, AND REQUESTING DILAUDID. GAVE 0.5 MG IVP PER PRN ORDER. WILL CONTINUE TO MONITOR FOR NEEDS.
[2020-01-16 01:01] VITALS: BP 94/46
[2020-01-16 05:16] VITALS: BP 98/55
--- NOTE | 2020-01-16 07:46 | NUR ---
PT SITTING UP IN BED REQUESTIG PAIN MEDICATION, PT LAST HAD PRN MEDICATION AT 0430, UNABLE TO GIVE UNTIL 0830. INFORMED PT I WILL BRING PRN PAIN MDICATION WITH MORNING MEDS, OBTAINED VS, NO OTHER NEEDS AT THIS TIME, PT IV IN RT HAND IS TENDER BUT STILL FLUSHES AND WORKING WELL, WILL KEEP AN EYE ON IT. CL IN REACH CONTINUE WITH PLAN OF CARE
[2020-01-16 07:49] VITALS: BP 112/60
--- NOTE | 2020-01-16 09:59 | NUR ---
MELISSA FROM LAB CAME TO DRAW BLOOD ON PT AGAIN, ATTEMPTED 2X'S AND UNSUCCESSFUL EACH TIME. THIS IS THE 3RD COMMERCIAL LENDING RELATIONSHIP MANAGER THAT HAS TRIED TO DRAW BLOOD. WILL SEE WHAT DR MASON WOULD LIKE TO DO. PT INQUIRED ON LEAVING IV IN FOR PAIN MEDICATION, ADVISED PT SHE ALSO HAS PO PAIN MEDICATION AND THAT WE NEEDS TO WEAN OFF IV, PT STATED PO PAIN MEDICATIONS CAUSE HER TO BE NAUSEOUS AND THAT SHE PREFERRED IV, EXPLAINED TO PT THAT WHEN SHE GOES TO REHAB MOST LIKELY THE IV WILL BE DC. PT THEN STATED SHE WANTED TO TALK TO DR ABOUT OTHER PO MEDS THAT WOULD NOT MAKE HER SICK. NO OTHER NEEDS AT THIS TIME, CONTINUE WITH PLAN OF CARE
--- NOTE | 2020-01-16 10:23 | NUR ---
Rehab Prescreening Consult recieved and the chart has been reviewed. She has [employer] managed Medicare and will require a preauth for rehab. She has a PT eval and an OT eval pending. Once completed all [id number] will be submitted to the insurance for reveiw. Nayeli Vitale RN Clinical Liaison, Rehab
--- NOTE | 2020-01-16 10:59 | NUR ---
I have reviewed this patient and I concur with the Shift Assessment completed by the Licensed Practical Nurse today this shift.
--- NOTE | 2020-01-16 11:00 | NUR ---
SPOKE TO WOUND CARE NURSE IN REGARDS TO DRESSING CHANGE AND WHAT SHE WOUILD LIKE APPLIED, PER NURSE, PLEASE GET WITH SURGEON THAT PLACED DRESSING AND HAVE ORDERS FOR DRESSING CHANGE TO ENSURE DONE CORRECTLY. WILL CALL SURGEON IN REGARDS TO DRESSING CHANGES
--- NOTE | 2020-01-16 12:20 | NUR ---
WENT TO PUSH IV PAIN MEDICATION AND PT IV STARTED TO LEAK, UNABLE TO SAVE IV, HAD TO DC, CATHETER INTACT, EXPLAIN TO PT THAT SHE WILL NOW ONLY GET PO PAIN MEDICATION, PT STATED SHE WILL TRY AND TOLERATE MEDS, CL IN REACH, CONTINUE WITH PLAN OF CARE
[2020-01-16 12:30] VITALS: BP 91/40
[2020-01-16 12:42] VITALS: Ht 157.5 cm; Wt 56.7 kg
--- NOTE | 2020-01-16 14:38 | NUR ---
HEARD A CALL FOR HELP, WENT INTO PT ROOM AND PT WAS SITTING ON FLOOR IN FRONT OF HER BSC, HAD JUST ASSISTED PT TO BSC AND PLACED CL IN REACH, PT STATED SHE STOOD UP TO WIPE AND WAS LEANING FORWARD TO MUCH AND LOST HER BALANCE, PT HAD NON SKID SOCKS IN PLACE, STATED SHE IS NOT HURTING ANYWHERE OTHR THAN HER LEG BUT SHE DID HIT HER BCAK AGAINST THE WALL. ASSESSED PT BACK AND THERE WERE NO RED CAMACHO OR SCRATCHES. WILL CALL DR MASON TO INFORM WELL FAMILY
--- NOTE | 2020-01-16 14:47 | NUR ---
PT C/O PAIN IN LEFT LEG, PT IV IN RT HAND INFILTRATED, PT STATES THAT CURRENT PAIN MEDICATION MAKES HER NAUSEOUS AND DOES OT WORK AND ASK THAT I CALL DR FOR DIFFERENT PAIN MEDICATION, WILL CALL DR MASON
[2020-01-16 17:03] VITALS: BP 98/48
--- NOTE | 2020-01-16 17:10 | NUR ---
PT SITTING UP IN BED VISITING WITH FRIENDS OVER PHONE, NO S/SX OF DISTRESS, CL IN REACH NO C/O PAIN WILL CONTINUE TO ASSESS BACKSIDE. NO NEEDS VOICED, CONTINUE WITH PLAN OF CARE
--- NOTE | 2020-01-16 17:56 | NUR ---
PT IN BED WITH DINNER TRAY ACROSS LAP, STATES SHE IS IN PAIN AND REQUESTED PAIN MEDICATION, PAIN IS 8/10, ADMINISTERED PRN PAIN MEDICATION NO OTHER NEEDS AT THIS TIME. CONTINUE WITH PLAN OF CARE
--- NOTE | 2020-01-16 19:00 | NUR ---
BEDSIDE REPORT RECEIVED AND CARE OF PT ASSUMED. PT LYING IN LOW GIBSON'S POSITION WITH EYES CLOSED AND EASY RESPIRATIONS. NO IV SITED. RUE NOT SWOLLEN THIS AM. DRESSING ON LEFT LEG CLEAN, DRY AND INTACT. WILL MONITOR FOR NEEDS.
[2020-01-16 20:00] VITALS: BP 93/50
--- NOTE | 2020-01-16 21:30 | NUR ---
HS MEDICATIONS GIVEN TO INCLUDE TRAMADOL AND TIZANADINE FOR PAIN. WILL CONTINUE TO MONITOR FOR NEEDS.
[2020-01-17] VITALS: BP 127/68
[2020-01-17 04:00] VITALS: BP 98/46
[2020-01-17 05:27] LABS: BASOPHILS 0.4 % (0-2); EOSINOPHILS 4.7 % (0-7); HEMATOCRIT 27.1 % (36.0-48.0); HEMOGLOBIN 8.5 g/dL (12-16); IMMATURE GRANULOCYTES 0.2 % (0-5); MCH 28.9 pg (26.0-34.0); MCHC 31.4 g/dL (31.0-37.0); MCV 92.2 fL (80.0-100.0); MEAN PLATELET VOLUME 9.1 fL (7.4-10.4); MONOCYTES 8.4 % (2-11); NEUTROPHILS 64.3 % (40-80); PLATELET COUNT 297 10x3/uL (130-400); RBC 2.94 10x6/uL (4.00-5.40); RDW 14.8 % (11.5-14.5); WBC 5.1 10x3/uL (4.8-10.8)
[2020-01-17 05:31] LABS: INR 4.34 (0.85-1.17); PROTIME 40.7 SECONDS (11.6-15.0)
[2020-01-17 05:35] LABS: ANION GAP 15.4 mmol/L (8-16); CALCIUM 7.5 mg/dL (8.5-10.1); CARBON DIOXIDE 23.8 mmol/L (21.0-32.0); CREATININE - SERUM 1.3 mg/dL (0.6-1.3); POTASSIUM - SERUM 4.2 mmol/L (3.5-5.1)
--- NOTE | 2020-01-17 07:14 | NUR ---
PT SITTING UP IN BED CRYING AND RUBBING LEFT LEG, STATED PAIN IS AN 8/10, ADMINISTERED PRN PAIN MEDICATION, NO OTHER NEEDS VOICED, ASSUME PT CARE
[2020-01-17 07:54] VITALS: BP 137/59
[2020-01-17 12:06] VITALS: BP 135/79
--- NOTE | 2020-01-17 14:12 | MORECARE ---
CASE MANAGEMENT DISCHARGE SUMMARY PATIENT: ARVIN DOS SANTOS UNIT: [id number] ADM DATE: 01/14/20 AGE: 69 : 51 SEX: F ROOM/BED: D.2218 AUTHOR: IGGY,DOC PHYSICIAN: REFERRING PHYSICIAN: ILENE CABRAL MD DATE OF SERVICE: 01/17/20 Discharge Plan Patient Name: ARVIN DOS SANTOS Facility: [facility]:[place] : 1950 Planned Disposition: Inpatient Rehab Facility Anticipated Discharge Date: Discharge Date: Expected LOS: Initial Reviewer: [id number] Initial Review Date: 01/14/2020 Generated: 01/17/20 3:11 pm DCP- Discharge Planning Updated by [id number]: Radha Garrett on 01/15/20 12:[address] Plan: [facility]. Faxed required information. CM met with patient regarding DC plans. Alert/Oriented, lives alone in an apartment on the 1st floor. PCP: Dr. Love. Pharmacy: [address] [facility]: [facility]. DME: walker. Patient states she requires assistance with bathing, ambulation. Patient Choice for #1 [facility], #2 Rehab signed and on chart. Emergency contact: Ally Rendon (sister) [phone] ([place]). Patient gives permission to speak with her sister. Patient states she has no one to assist her at home. Admits to hospitalization within past 30 days. Hx: Breast Cancer 2007, reserve Left arm. Patient's insurance will require prior authorization for Rehab. Brianne Liang with [facility] and will fax required information. . DCPIA - Discharge Planning Initial Assessment Updated by [id number]: Radha Garrett on 01/15/20 12:23 pm * Is the patient Alert and Oriented? Yes * How many steps to enter\exit or inside your home? * PCP Dr. Love * Pharmacy [address] * Preadmission Environment Home Alone * ADLs Partial Dependent * Partial ADLs (Assistance needed) Ambulation Bathing Dressing * Equipment Walker * Other Equipment NA * List name and contact numbers for known caregivers / representatives who currently or will assist patient after discharge: Ally Whitney (sister) [phone] ([place]) * Verbal permission to speak to the caregivers and representatives has been obtained from the patient. Yes * Community resources currently utilized Home Health * Please name any agencies selected above. [facility] * Additional services required to return to the preadmission environment? Yes * Can the patient safely return to the preadmission environment? No * Has this patient been hospitalized within the prior 30 days at any hospital? Yes External Providers External Provider: OTHER-OTHER Next Contact Date: Service Request Date: Service Type: Resolution: Reviewer: Comments: Coverage Notice Reviewer: [id number] Alda Garrett Notice Issued Date-Time: 01/15/2020 15:59 Notice Type: Patient Choice Letter Notice Delivered To: Patient Relationship to Patient: Self Cash On Delivery Clerk Name: Arvin Dos Santos Delivery Method: HAND - Hand Delivered Ame Days: Prior Verbal Notification: Recipient Understood Notice: Yes Recipient Signature: Yes Med Rec Note Co-signed by Attending: Coverage Notice Comment: Patient choice for [facility] signed by patient, placed on chart. Last DP export: 01/15/20 12:37 p Patient Name: ARVIN DOSS ANTOS Page [phone] at 1412 All edits/amendments must be made on the electronic document DICTATION DATE: 01/17/20 141 BELLPERSON: YAYO 01/17/20 1411 RPT#: [id number] DC DATE: STATUS: ADM IN [facility] [address] [place] [address] END OF REPORT
--- NOTE | 2020-01-17 14:32 | NUR ---
Rehab Note- Received call with Auth #[id number] from S[facility] this AM, after furhter investigation the patient requested [facility] for [facility] Acute Rehab. Spoke with CHRISTINE Hu. Called Sindi with [facility], stated that she will call [facility] for transfer of Auth. Notified CHRISTINE Hu of conversation with Sindi with [facility]. Thank you for this referral! Frances Lozada RN Clinical Liaison, [facility] Rehab
--- NOTE | 2020-01-17 15:32 | NUR ---
OT NOTE: PT COMPLETED SUPINE TO SIT AT EOB WITH SBA. PT COMPLETED LE MANAGEMENT WITH SBA. PT COMPLETED EOB SITTING WITH SPV. PT COMPLETED BUE AROM EXS AT EOB WITH SPV. PT COMPLETED FACE HYGIENE WITH SET UP AT EOB. [id number] THANK YOU,MARISOL MORGAN
--- NOTE | 2020-01-17 15:37 | MORECARE ---
CASE MANAGEMENT DISCHARGE SUMMARY PATIENT: ARVIN DOS SANTOS UNIT: [id number] ADM DATE: 01/14/20 AGE: 69 : 51 SEX: F ROOM/BED: D.2218 AUTHOR: IGGY,DOC PHYSICIAN: REFERRING PHYSICIAN: ILENE CABRAL MD DATE OF SERVICE: 01/17/20 Discharge Plan Patient Name: ARVIN DOS SANTOS Facility: [facility]:[place] : 1950 Planned Disposition: Inpatient Rehab Facility Anticipated Discharge Date: Discharge Date: Expected LOS: Initial Reviewer: [id number] Initial Review Date: 01/14/2020 Generated: 01/17/20 4:36 pm Comments DCP- Discharge Planning Updated by [id number]: Jazmine Ceja on 01/17/20 2:[address] PATIENT HAS BEEN ACCEPTED TO INPATIENT REHAB AT [facility], I CALLED DR MASON'S OFFICE AND SPOKE WITH MARTHA TO LET HER KNOW THAT THEY WILL ACCEPT HER TODAY DCP- Discharge Planning Updated by [id number]: Radha Garrett on 01/15/20 12:[address] Plan: [facility]. Faxed required information. CM met with patient regarding DC plans. Alert/Oriented, lives alone in an apartment on the 1st floor. PCP: Dr. Mason. Pharmacy: [address] [facility]: [facility]. DME: walker. Patient states she requires assistance with bathing, ambulation. Patient Choice for #1 [facility], #2 Rehab signed and on chart. Emergency contact: Ally Rendon (sister) [phone] ([place]). Patient gives permission to speak with her sister. Patient states she has no one to assist her at home. Admits to hospitalization within past 30 days. Hx: Breast Cancer 2007, reserve Left arm. Patient's insurance will require prior authorization for Rehab. Brianne Liang with [facility] and will fax required information. . DCPIA - Discharge Planning Initial Assessment Updated by [id number]: Radha Garrett on 01/15/20 12:23 pm * Is the patient Alert and Oriented? Yes * How many steps to enter\exit or inside your home? * PCP Dr. Mason * Pharmacy [facility] [address] * Preadmission Environment Home Alone * ADLs Partial Dependent * Partial ADLs (Assistance needed) Ambulation Bathing Dressing * Equipment Walker * Other Equipment NA * List name and contact numbers for known caregivers / representatives who currently or will assist patient after discharge: Ally Whitney (sister) [phone] ([place]) * Verbal permission to speak to the caregivers and representatives has been obtained from the patient. Yes * Community resources currently utilized Home Health * Please name any agencies selected above. [facility] * Additional services required to return to the preadmission environment? Yes * Can the patient safely return to the preadmission environment? No * Has this patient been hospitalized within the prior 30 days at any hospital? Yes Coverage Notice Reviewer: [id number] Alda Garrett Notice Issued Date-Time: 01/15/2020 15:59 Notice Type: Patient Choice Letter Notice Delivered To: Patient Relationship to Patient: Self Robotics Technician Name: Arvin Dos Santos Delivery Method: HAND - Hand Delivered Ame Days: Prior Verbal Notification: Recipient Understood Notice: Yes Recipient Signature: Yes Med Rec Note Co-signed by Attending: Coverage Notice Comment: Patient choice for [facility] signed by patient, placed on chart. Last DP export: 01/17/20 1:12 p Patient Name: ARVIN DOS SANTOS Page [phone] at 1537 All edits/amendments must be made on the electronic document DICTATION DATE: 01/17/206 RADIOLOGICAL EQUIPMENT SPECIALIST: YAYO 01/17/201535 RPT#: [id number] DC DATE: STATUS: ADM IN [facility] [address] [place] [address] END OF REPORT
[2020-01-17 15:44] VITALS: BP 97/56
--- NOTE | 2020-01-17 15:44 | MORECARE ---
CASE MANAGEMENT DISCHARGE SUMMARY PATIENT: ARVIN DOS SANTOS UNIT: [id number] ADM DATE: 01/14/20 AGE: 69 : 51 SEX: F ROOM/BED: D.2218 AUTHOR: IGGY,DOC PHYSICIAN: REFERRING PHYSICIAN: ILENE CABRAL MD DATE OF SERVICE: 01/17/20 Discharge Plan Patient Name: ARVIN DOS SANTOS Facility: [facility]:[place] : 1950 Planned Disposition: Inpatient Rehab Facility Anticipated Discharge Date: Discharge Date: Expected LOS: Initial Reviewer: [id number] Initial Review Date: 01/14/2020 Generated: 01/17/20 4:44 pm Comments DCP- Discharge Planning Updated by [id number]: Jazmine Marcial on 01/17/20 2:[address] IMM SERVED AND EXPLAINED. COPY GIVEN HER AND ONE PLACED IN CHART, I ALSO CALLED AND LET HER SISTER KNOW THAT SHE WAS BEING DISCHARGED DCP- Discharge Planning Updated by [id number]: Jazmine Ceja on 01/17/20 2:[address] PATIENT HAS BEEN ACCEPTED TO INPATIENT REHAB AT [facility], I CALLED DR MASON'S OFFICE AND SPOKE WITH MARTHA TO LET HER KNOW THAT THEY WILL ACCEPT HER TODAY DCP- Discharge Planning Updated by [id number]: Radha Gerry on 01/15/20 12:[address] Plan: [facility]. Faxed required information. CM met with patient regarding DC plans. Alert/Oriented, lives alone in an apartment on the 1st floor. PCP: Dr. Mason. Pharmacy: [address] [facility]: [facility]. DME: walker. Patient states she requires assistance with bathing, ambulation. Patient Choice for #[facility], #2 [facility] signed and on chart. Emergency contact: Ally Rendon (sister) [phone] ([place]). Patient gives permission to speak with her sister. Patient states she has no one to assist her at home. Admits to hospitalization within past 30 days. Hx: Breast Cancer 2007, reserve Left arm. Patient's insurance will require prior authorization for Rehab. Brianne Liang with [facility] and will fax required information. . DCPIA - Discharge Planning Initial Assessment Updated by [id number]: Radha Garrett on 01/15/20 12:23 pm * Is the patient Alert and Oriented? Yes * How many steps to enter\exit or inside your home? * PCP Dr. Mason * Pharmacy [facility] [address] * Preadmission Environment Home Alone * ADLs Partial Dependent * Partial ADLs (Assistance needed) Ambulation Bathing Dressing * Equipment Walker * Other Equipment NA * List name and contact numbers for known caregivers / representatives who currently or will assist patient after discharge: Ally Whitney ([facility]) [phone] ([place]) * Verbal permission to speak to the caregivers and representatives has been obtained from the patient. Yes * Community resources currently utilized Home Health * Please name any agencies selected above. [facility] * Additional services required to return to the preadmission environment? Yes * Can the patient safely return to the preadmission environment? No * Has this patient been hospitalized within the prior 30 days at any hospital? Yes Coverage Notice Reviewer: [id number] - Radhaoracio Garrett Notice Issued Date-Time: 01/15/2020 15:59 Notice Type: Patient Choice Letter Notice Delivered To: Patient Relationship to Patient: Self Glove Tagger Name: Arvin Dos Santos Delivery Method: HAND - Hand Delivered Ame Days: Prior Verbal Notification: Recipient Understood Notice: Yes Recipient Signature: Yes Med Rec Note Co-signed by Attending: Coverage Notice Comment: [facility], placed on chart. Reviewer: [id number] Alda Ceja Notice Issued Date-Time: 01/17/2020 15:35 Notice Type: IM Discharge Notice Notice Delivered To: Patient Relationship to Patient: Glove Tagger Name: Delivery Method: HAND - Hand Delivered Ame Days: Prior Verbal Notification: Recipient Understood Notice: Yes Recipient Signature: Yes Med Rec Note Co-signed by Attending: Coverage Notice Comment: Last DP export: 01/17/20 2:37 p Patient Name: ARVIN DOS SANTOS Page [id number] at 1544 All edits/amendments must be made on the electronic document DICTATION DATE: 01/17/20 1544 BEAUTY OPERATOR APPRENTICE: YAYO 01/17/20 1544 RPT#: [id number] DC DATE: STATUS: ADM IN [facility] [address] [place] [address] END OF REPORT
[2020-01-17] MEDS ORDERED: ULTRAM50 MG PO (16:21)
--- NOTE | 2020-01-17 16:52 | MORECARE ---
CASE MANAGEMENT DISCHARGE SUMMARY PATIENT: ARVIN DOS SANTOS UNIT: [id number] ADM DATE: 01/14/20 AGE: 69 : 51 SEX: F ROOM/BED: D.2218 AUTHOR: IGGY,DOC PHYSICIAN: REFERRING PHYSICIAN: ILENE CABRAL MD DATE OF SERVICE: 01/17/20 Discharge Plan Patient Name: ARVIN DOS SANTOS Facility: [facility]:[place] : 1950 Planned Disposition: Inpatient Rehab Facility Anticipated Discharge Date: Discharge Date: Expected LOS: Initial Reviewer: [id number] Initial Review Date: 01/14/2020 Generated: 01/17/20 5:51 pm Comments DCP- Discharge Planning Updated by [id number]: Jazmine Ceja on 01/17/20 3:[address] PATIENT WILL BE GOING TO ROOM 100, [facility] WILL SET UP [facility] NURSE TO CALL REPORT DCP- Discharge Planning Updated by [id number]: Jazmine Marcial on 01/17/20 2:[address] IMM SERVED AND EXPLAINED. COPY GIVEN HER AND ONE PLACED IN CHART, I ALSO CALLED AND LET HER SISTER KNOW THAT SHE WAS BEING DISCHARGED DCP- Discharge Planning Updated by [id number]: Jazmine Ceja on 01/17/20 2:[address] PATIENT HAS BEEN ACCEPTED TO INPATIENT REHAB AT [facility], I CALLED DR MASON'S OFFICE AND SPOKE WITH MARTHA TO LET HER KNOW THAT THEY WILL ACCEPT HER TODAY DCP- Discharge Planning Updated by [id number]: Radha Garrett on 01/15/20 12:[address] Plan: [facility]. Faxed required information. CM met with patient regarding DC plans. Alert/Oriented, lives alone in an apartment on the 1st floor. PCP: Dr. Mason. Pharmacy: [address] [facility]: [facility]. DME: walker. Patient states she requires assistance with bathing, ambulation. Patient Choice for #1 [facility], #2 Rehab signed and on chart. Emergency contact: Ally Rendon (sister) [phone] ([place]). Patient gives permission to speak with her sister. Patient states she has no one to assist her at home. Admits to hospitalization within past 30 days. Hx: Breast Cancer 2007, reserve Left arm. Patient's insurance will require prior authorization for Rehab. Brianne Liang with [facility] and will fax required information. . DCPIA - Discharge Planning Initial Assessment Updated by [id number]: Radhaoracio Garrett on 01/15/20 12:23 pm * Is the patient Alert and Oriented? Yes * How many steps to enter\exit or inside your home? * PCP Dr. Mason * Pharmacy [address] * Preadmission Environment Home Alone * ADLs Partial Dependent * Partial ADLs (Assistance needed) Ambulation Bathing Dressing * Equipment Walker * Other Equipment NA * List name and contact numbers for known caregivers / representatives who currently or will assist patient after discharge: Ally Whitney (sister) [phone] ([place]) * Verbal permission to speak to the caregivers and representatives has been obtained from the patient. Yes * Community resources currently utilized Home Health * Please name any agencies selected above. [facility] * Additional services required to return to the preadmission environment? Yes * Can the patient safely return to the preadmission environment? No * Has this patient been hospitalized within the prior 30 days at any hospital? Yes Coverage Notice Reviewer: [id number] - Radha Ramoslroy Notice Issued Date-Time: 01/15/2020 15:59 Notice Type: Patient Choice Letter Notice Delivered To: Patient Relationship to Patient: Self Lithoduplicator Operator Name: Arvin Dos Santos Delivery Method: HAND - Hand Delivered Ame Days: Prior Verbal Notification: Recipient Understood Notice: Yes Recipient Signature: Yes Med Rec Note Co-signed by Attending: Coverage Notice Comment: Patient choice for [facility] signed by patient, placed on chart. Reviewer: [id number] - Jazmine Ceja Notice Issued Date-Time: 01/17/2020 15:35 Notice Type: IM Discharge Notice Notice Delivered To: Patient Relationship to Patient: Lithoduplicator Operator Name: Delivery Method: HAND - Hand Delivered Ame Days: Prior Verbal Notification: Recipient Understood Notice: Yes Recipient Signature: Yes Med Rec Note Co-signed by Attending: Coverage Notice Comment: Last DP export: 01/17/20 2:44 p Patient Name: ARVIN DOS SANTOS Page [phone] at 1652 All edits/amendments must be made on the electronic document DICTATION DATE: 01/17/201650 WEED CUTTER: YAYO 01/17/201650 RPT#: [id number] DC DATE: STATUS: ADM IN [facility] [address] [place] [address] END OF REPORT
--- NOTE | 2020-01-17 18:36 | NUR ---
PT PICKED UP BY AMBULANCE, REPORT CALLED TO [facility], NO OTHER NEEDS VOICED
--- NOTE | 2020-01-18 18:32 | MORECARE ---
CASE MANAGEMENT DISCHARGE SUMMARY PATIENT: ARVIN DOS SANTOS UNIT: [id number] ADM DATE: 01/14/20 AGE: 69 : 51 SEX: F ROOM/BED: D.2218 AUTHOR: IGGY,DOC PHYSICIAN: REFERRING PHYSICIAN: ILENE CABRAL MD DATE OF SERVICE: 01/18/20 Discharge Plan Patient Name: ARVIN DOS SANTOS Facility: [facility]:[place] : 1950 Planned Disposition: Inpatient Rehab Facility Anticipated Discharge Date: Discharge Date: 01/17/2020 Expected LOS: Initial Reviewer: [id number] Initial Review Date: 01/14/2020 Generated: 01/18/20 7:31 pm Comments DCP- Discharge Planning Updated by [id number]: Jazmine Ceja on 01/17/20 3:[address] PATIENT WILL BE GOING TO ROOM 100, [facility] WILL SET UP [facility] NURSE TO CALL REPORT DCP- Discharge Planning Updated by [id number]: Jazmine Ceja on 01/17/20 2:[address] IMM SERVED AND EXPLAINED. COPY GIVEN HER AND ONE PLACED IN CHART, I ALSO CALLED AND LET HER SISTER KNOW THAT SHE WAS BEING DISCHARGED DCP- Discharge Planning Updated by [id number]: Jazmine Ceja on 01/17/20 2:[address] PATIENT HAS BEEN ACCEPTED TO INPATIENT REHAB AT [facility], I CALLED DR MASON'S OFFICE AND SPOKE WITH MARTHA TO LET HER KNOW THAT THEY WILL ACCEPT HER TODAY DCP- Discharge Planning Updated by [id number]: Radha Garrett on 01/15/20 12:[address] Plan: [facility]. Faxed required information. CM met with patient regarding DC plans. Alert/Oriented, lives alone in an apartment on the 1st floor. PCP: Dr. Mason. [address] [facility]: [facility]. DME: walker. Patient states she requires assistance with bathing, ambulation. Patient Choice for #1 [facility], #2 Rehab signed and on chart. Emergency contact: Ally Rendon (sister) [phone] ([place]). Patient gives permission to speak with her sister. Patient states she has no one to assist her at home. Admits to hospitalization within past 30 days. Hx: Breast Cancer 2007, reserve Left arm. Patient's insurance will require prior authorization for Rehab. Brianne Liang with [facility] and will fax required information. . DCPIA - Discharge Planning Initial Assessment Updated by [id number]: Radha Garrett on 01/15/20 12:23 pm * Is the patient Alert and Oriented? Yes * How many steps to enter\exit or inside your home? * PCP Dr. Mason * Pharmacy [facility] [address] * Preadmission Environment Home Alone * ADLs Partial Dependent * Partial ADLs (Assistance needed) Ambulation Bathing Dressing * Equipment Walker * Other Equipment NA * List name and contact numbers for known caregivers / representatives who currently or will assist patient after discharge: Ally Whitney (sister) [phone] ([place]) * Verbal permission to speak to the caregivers and representatives has been obtained from the patient. Yes * Community resources currently utilized Home Health * Please name any agencies selected above. [facility] * Additional services required to return to the preadmission environment? Yes * Can the patient safely return to the preadmission environment? No * Has this patient been hospitalized within the prior 30 days at any hospital? Yes Coverage Notice Reviewer: [id number] - Radha Gerry Notice Issued Date-Time: 01/15/2020 15:59 Notice Type: Patient Choice Letter Notice Delivered To: Patient Relationship to Patient: Self Director Network Development Name: Arvin Dos Santos Delivery Method: HAND - Hand Delivered Ame Days: Prior Verbal Notification: Recipient Understood Notice: Yes Recipient Signature: Yes Med Rec Note Co-signed by Attending: Coverage Notice Comment: Patient choice for [facility] signed by patient, placed on chart. Reviewer: [id number] - Jazmine Ceja Notice Issued Date-Time: 01/17/2020 15:35 Notice Type: IM Discharge Notice Notice Delivered To: Patient Relationship to Patient: Director Network Development Name: Delivery Method: HAND - Hand Delivered Ame Days: Prior Verbal Notification: Recipient Understood Notice: Yes Recipient Signature: Yes Med Rec Note Co-signed by Attending: Coverage Notice Comment: Last DP export: 01/17/20 3:52 p Patient Name: ARVIN DOS SANTOS Page [phone] at 1832 All edits/amendments must be made on the electronic document DICTATION DATE: 01/18/201830 ELECTRONIC GAMING DEVICE SUPERVISOR: YAYO 01/18/201830 RPT#: [id number] DC DATE:01/17/20 STATUS: DIS IN [facility] [address] [place] [address] END OF REPORT
== END 2020-01-17 18:36 | DRG 812 ==
LOC: D.ER 11:10 → D.MS 13:02
PROVIDERS: Family Medicine; ADMIT Family Medicine; ATTEND Family Medicine
DX: D62 Acute posthemorrhagic anemia (principal); I82.621 Acute embolism and thrombosis of deep veins of right upper extremity; R53.1 Weakness; N18.3 Chronic kidney disease, stage 3 (moderate); D63.1 Anemia in chronic kidney disease; Z86.73 Personal history of transient ischemic attack (TIA), and cerebral infarction without residual deficits

== ENCOUNTER → 2020-01-30 22:37 | Outpatient (CLI) | payer OTHER ==
[2020-01-16 12:42] VITALS: BMI 22.8
[2020-01-30 23:19] LABS: INR 1.47 (0.85-1.17); PROTIME 17.7 SECONDS (11.6-15.0)
== END | disposition home or self-care (01) ==
LOC: D.LABREF 22:37
PROVIDERS: ATTEND Family Medicine
DX: I82.409 Acute embolism and thrombosis of unspecified deep veins of unspecified lower extremity (principal)

== ENCOUNTER → 2020-02-06 17:04 | Outpatient (CLI) | payer OTHER ==
[2020-01-16 12:42] VITALS: BMI 22.8
[2020-02-06 17:20] LABS: INR 2.46 (0.85-1.17); PROTIME 26.3 SECONDS (11.6-15.0)
== END | disposition home or self-care (01) ==
LOC: D.LABREF 17:04
PROVIDERS: ATTEND Family Medicine
DX: I82.409 Acute embolism and thrombosis of unspecified deep veins of unspecified lower extremity (principal)